=== PATIENT | male | born 1945 | race Caucasian/White ===

== ENCOUNTER → 2018-08-14 12:29 | Outpatient (CLI) | payer MEDICARE ==
[2010-06-15 03:17] VITALS: BMI 46.8
== END | disposition home or self-care (01) ==
LOC: D.CT 12:29
PROVIDERS: ATTEND Family Medicine
DX: I73.9 Peripheral vascular disease, unspecified (principal)

== ENCOUNTER → 2018-09-06 08:31 | Outpatient (CLI) | payer MEDICARE ==
[2010-06-15 03:17] VITALS: BMI 46.8
[2018-09-06 10:12] LABS: CREATININE - SERUM 1.4 mg/dL (0.6-1.3)
== END | disposition home or self-care (01) ==
LOC: D.CT 08:30
PROVIDERS: ATTEND Family Medicine
DX: D41.01 Neoplasm of uncertain behavior of right kidney (principal)

== ENCOUNTER 2018-09-27 08:00 | Outpatient (CLI) | payer MEDICARE ==
[2018-09-27] MEDS ORDERED: GLIMEPIRIDE2 MG (15:11)
[2018-09-27] MEDS ORDERED: EFFEXOR75 MG (15:11)
[2018-09-27] MEDS ORDERED: PRAVACHOL20 MG PO (15:12)
[2018-09-27] MEDS ORDERED: LISINOPRIL5 MG PO (15:12)
[2018-09-27] MEDS ORDERED: ASPIRIN300 MG (15:13)
[2018-09-27] MEDS ORDERED: MUCINEX600 MG (15:14)
[2018-09-27 16:06] LABS: BASOPHILS 0.9 % (0-2); EOSINOPHILS 1.6 % (0-7); HEMATOCRIT 55.7 % (42.0-54.0); HEMOGLOBIN 19.3 g/dL (13.5-17.5); IMMATURE GRANULOCYTES 0.1 % (0-5); LYMPHOCYTES 26.8 % (15-50); MCH 31.1 pg (26.0-34.0); MCHC 34.6 g/dL (31.0-37.0); MCV 89.8 fL (80.0-100.0); MEAN PLATELET VOLUME 9.9 fL (7.4-10.4); MONOCYTES 8.2 % (2-11); NEUTROPHILS 62.4 % (40-80); RDW 14.2 % (11.5-14.5); WBC 8.1 10x3/uL (4.8-10.8)
[2018-09-27 16:17] LABS: APTT 28.5 SECONDS (22.8-39.4); INR 1.1 (0.85-1.17); PROTIME 13.7 SECONDS (11.6-15.0)
[2018-09-27 16:19] LABS: PLATELET COUNT 165 10x3/uL (130-400)
[2018-09-27 16:21] LABS: ALBUMIN 3.7 g/dL (3.4-5.0); BILIRUBIN - TOTAL 0.52 mg/dL (0.2-1.3); CALCIUM 8.9 mg/dL (8.5-10.1); CARBON DIOXIDE 22.5 mmol/L (21.0-32.0); CREATININE - SERUM 1.3 mg/dL (0.6-1.3); POTASSIUM - SERUM 4.5 mmol/L (3.5-5.1); PROTEIN - SERUM 7.7 g/dL (6.4-8.2)
[2018-09-27 16:31] LABS: APPEARANCE HAZY (CLEAR); BILIRUBIN NEGATIVE (NEGATIVE); COLOR YELLOW (YELLOW); GLUCOSE NEGATIVE (NEGATIVE); KETONE NEGATIVE (NEGATIVE); NITRITE NEGATIVE (NEGATIVE); PROTEIN TRACE mg/dL (NEGATIVE); SPECIFIC GRAVITY 1.015 (1.005-1.020); UROBILINOGEN NORMAL (NORMAL)
[2018-09-27 16:33] LABS: BACTERIA MANY /hpf (NONE SEEN); RED CELLS - URINE 0-5 /hpf (0-5); WHITE CELLS - URINE 25-50 /hpf (0-5)
[2018-09-28 09:21] VITALS: BMI 39.1
[2018-10-30] MEDS ORDERED: AMOXICILLIN500 M1 PO (13:59)
== END 2018-09-27 08:01 | disposition home or self-care (01) ==
LOC: D.OPS 08:00 → EDSTATUS 09-29 07:30 → D.SDCHOLD 09-29 07:30
PROVIDERS: Internal Medicine Cardiovascular Disease; ATTEND Thoracic Surgery (Cardiothoracic Vascular Surgery)
DX: I71.4 Abdominal aortic aneurysm, without rupture (principal)

== ENCOUNTER 2018-09-28 08:52 | Outpatient (CLI) | payer MEDICARE ==
[~2018-09-28] VITALS: Ht 180.3 cm; Wt 127.3 kg
[~2018-09-28 08:52] MED LIST: ASPIRIN300 MG; EFFEXOR75 MG; GLIMEPIRIDE2 MG; LISINOPRIL5 MG PO; MUCINEX600 MG; PRAVACHOL20 MG PO
[2018-09-28 09:21] VITALS: Ht 180.3 cm; Wt 127.3 kg
--- NOTE | 2018-09-28 09:48 | NUR ---
0930 STRAIGHT CATH COMPLETE PER POLICY. TOLERATED WELL. 500 ML CLEAR YELLOW UNINE. SPECIMEN SENT TO LAB.
[2018-09-28 10:24] LABS: APPEARANCE SL CLDY (CLEAR); BACTERIA MANY /hpf (NONE SEEN); BILIRUBIN NEGATIVE (NEGATIVE); COLOR YELLOW (YELLOW); EPITHELIAL CELLS 0-5 /hpf (0-5); GLUCOSE NEGATIVE (NEGATIVE); KETONE SMALL mg/dL (NEGATIVE); MUCUS <1+ /lpf (NONE SEEN); NITRITE NEGATIVE (NEGATIVE); PROTEIN TRACE mg/dL (NEGATIVE); RED CELLS - URINE 0-5 /hpf (0-5); SPECIFIC GRAVITY 1.015 (1.005-1.020); UROBILINOGEN NORMAL (NORMAL)
== END 2018-09-28 09:45 | disposition home or self-care (01) ==
LOC: D.OPS 08:52
PROVIDERS: ATTEND Thoracic Surgery (Cardiothoracic Vascular Surgery)
DX: N39.0 Urinary tract infection, site not specified (principal)

== ENCOUNTER → 2018-10-06 17:19 | Outpatient (CLI) | payer MEDICARE ==
[2018-09-28 09:21] VITALS: BMI 39.1
== END | disposition home or self-care (01) ==
LOC: D.LABREF 17:19
PROVIDERS: ATTEND Urology
DX: D72.829 Elevated white blood cell count, unspecified (principal)

== ENCOUNTER 2018-10-31 08:25 | Day surgery (SDC) | payer MEDICARE ==
[2018-10-30 15:08] LABS: CALCIUM 8.7 mg/dL (8.5-10.1); CARBON DIOXIDE 27.1 mmol/L (21.0-32.0); CREATININE - SERUM 1.3 mg/dL (0.6-1.3); POTASSIUM - SERUM 4.1 mmol/L (3.5-5.1)
[2018-10-30 15:14] LABS: HEMATOCRIT 53.9 % (42.0-54.0); HEMOGLOBIN 18.9 g/dL (13.5-17.5); MCH 31.3 pg (26.0-34.0); MCHC 35.1 g/dL (31.0-37.0); MCV 89.4 fL (80.0-100.0); MEAN PLATELET VOLUME 9.5 fL (7.4-10.4); RBC 6.03 10x6/uL (4.20-6.10); RDW 14.2 % (11.5-14.5); WBC 7.3 10x3/uL (4.8-10.8)
[~2018-10-31 08:25] MED LIST changes: +AMOXICILLIN500 M1 PO
[2018-10-31 13:21] VITALS: BP 125/73; BMI 38.0
--- NOTE | 2018-10-31 14:45 | NUR ---
1425 NO ANCEF 2 GRAM IN PYXIS FOR PT OR UNDERPATIENT SPECIFIC DOSE. PHARMACY CALLED & INFORMED DOSE NEEDS TO BE TAKEN TO OR HOLDING. CHART FLAGGED. CHART WITH 10/31/18 EKG & 10/[address] MORTENSEN FOR REVIEW. STATES OKAY FOR SURGERY TODAY. NO BIG CHANGES BETWEEN THEM. EKG SIGNED OFF BY DR. MORTENSEN. Ynes MOROCHO R.N.
--- NOTE | 2018-10-31 14:50 | NUR ---
1300 (LATE ENTRY)TO ROOM 2511 FOR OPS AFTER WAITING IN WAITING ROOM SINCE 824. Ynes MOROCHO R.N.
--- NOTE | 2018-10-31 18:12 | NUR ---
ZAMARRIPA BAG CHANGED TO LEG BAG, PATIENT'S CAREGIVER STATES THAT SHE AND PATIENT HAVE BEEN CARING FOR ZAMARRIPA AND LEG BAG FOR PAST MONTH AND ARE FAMILIAR WITH THIS PROCESS. PIV DC'D WITH TIP INTACT. DISCHARGE INSTRUCTIONS REVIEWED WITH PATIENT AND CAREGIVER. DISCHARGED HOME VIA WHEELCHAIR TO PRIVATE VEHICLE WITH CAREGIVER
--- NOTE | 2018-10-31 19:37 | OP ---
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 PROCEDURES: UroLift times 5 units deployed, [address] FINDINGS: Obstructive bilateral lateral lobes of the prostate. No median lobe. Heavily trabeculated bladder with cellules and diverticula. Inflammatory polyps from an indwelling Tadeo catheter. No bladder tumors seen. BLOOD LOSS: Minimal. CLINICAL HISTORY: This is a 73-year-old male who was seen by Dr. Smith for bilateral iliac artery aneurysms as well as an aortic aneurysm. He was scheduled to have surgery to repair the iliac aneurysms. However, the surgery was canceled when he was found to be in urinary retention and furthermore he had a urinary tract infection with Aerococcus urinae, which was sensitive to amoxicillin. He has an indwelling Tadeo catheter now. I have kept him on amoxicillin to keep the infection suppressed. He comes today to have the UroLift procedure done to relieve his prostatic obstruction. He has no medication allergies and he was given Ancef on-call to the OR. Once the patient is voiding spontaneously on his own, then Dr. Smith will proceed to repair the iliac aneurysms. DESCRIPTION OF PROCEDURE: The patient was given induction of general anesthesia. He could not maintain saturation for TIVA. Once he was given induction of general anesthesia, he was placed in lithotomy position and prepped and draped. The UroLift scope was introduced. No penile or urethral strictures were seen. The prostatic urethra was obstructive in the lateral lobes. Going into the bladder, there was significant trabeculation of the bladder with cellules and diverticula. There was some inflammation where the indwelling Tadeo catheter had irritated the mucosa. No tumors were seen in the bladder. We put the first units near the bladder neck. They were placed 1.5 cm distal to the bladder neck at the anterolateral sulcus of the lateral lobe. One unit was applied on each side. Then, we placed 2 more units in the level of the verumontanum at the anterolateral sulcus of the lateral lobe. On the right side, the unit was implanted without any issues. On the left side, one unit pulled through the capsular tab. This had to be discarded. Another unit was fired in this area and it held fast. The patient has a nice open urethral channel now anteriorly. I attempted to place a 16-Mohawk Tadeo catheter in for drainage, but this met with some resistance from the remaining prostatic BPH inferior to our anterior channel. I went back with the cystoscope 21-Mohawk, and with the scope in the bladder, a Sensor wire was placed in the bladder. The scope was then removed, leaving the wire in place. Over the wire, a 20-Mohawk Buchanan tip Tadeo catheter was placed into the bladder. Once the Tadeo catheter was fully in the bladder, the balloon was inflated with 10 cc of sterile water. The Sensor wire was then removed entirely. The catheter was put to bag OPERATIVE REPORT [id number] NIYA LANDON drainage. I will see the patient in followup in one week's time to have a voiding trial. TRANSINT:[id number] Voice Confirmation ID: [id number] DOCUMENT ID: [id number] LUCA VILLANUEVA MD at 1937 CC: [id number] DICTATION DATE: 10/31/18 1638 RIVET MACHINE OPERATOR: 10/31/18 1850 [facility] [address] [id number]
== END 2018-10-31 18:12 | disposition home or self-care (01) ==
LOC: D.OPS 08:25 → D.PAN 13:30 → D.OPS 14:30 → D.PAN 14:30 → D.OPS 18:12
PROVIDERS: Anesthesiology; ATTEND Urology
DX: N40.1 Benign prostatic hyperplasia with lower urinary tract symptoms (principal); N13.8 Other obstructive and reflux uropathy; R33.8 Other retention of urine; N32.89 Other specified disorders of bladder; N32.3 Diverticulum of bladder; D41.4 Neoplasm of uncertain behavior of bladder; Z87.440 Personal history of urinary (tract) infections; Z01.812 Encounter for preprocedural laboratory examination

== ENCOUNTER → 2018-11-08 19:16 | Outpatient (CLI) | payer MEDICARE ==
[2018-10-31 13:21] VITALS: BMI 38.0
== END | disposition home or self-care (01) ==
LOC: D.LABREF 19:16
PROVIDERS: ATTEND Urology
DX: R31.9 Hematuria, unspecified (principal)

== ENCOUNTER 2018-12-07 05:50 | Inpatient (IN) | payer MEDICARE ==
--- NOTE | 2018-12-06 11:58 | NUR ---
CALLED PT DAUGHTER SHE STATES,"HES BEEN OFF ASA SINCE TUESDAY OF LAST WEEK November."
[2018-12-06 14:15] LABS: HEMATOCRIT 55.5 % (42.0-54.0); LYMPHOCYTES 23.7 % (15-50); MCH 30.7 pg (26.0-34.0); MCHC 34.2 g/dL (31.0-37.0); MCV 89.7 fL (80.0-100.0); MEAN PLATELET VOLUME 9.5 fL (7.4-10.4); NEUTROPHILS 66.2 % (40-80); PLATELET COUNT 167 10x3/uL (130-400); RBC 6.19 10x6/uL (4.20-6.10); RDW 14.5 % (11.5-14.5); WBC 7.7 10x3/uL (4.8-10.8)
[2018-12-06 14:18] LABS: APTT 29.6 SECONDS (22.8-39.4); INR 1.04 (0.85-1.17); PROTIME 13.1 SECONDS (11.6-15.0)
[2018-12-06 14:27] LABS: ANION GAP 14.3 mmol/L (8-16); CALCIUM 8.4 mg/dL (8.5-10.1); CARBON DIOXIDE 22.1 mmol/L (21.0-32.0); CREATININE - SERUM 1.3 mg/dL (0.6-1.3); POTASSIUM - SERUM 4.4 mmol/L (3.5-5.1)
[2018-12-07] VITALS (11 sets, daily range): BP systolic 90–141; BP diastolic 64–79; BMI 39.1
[~2018-12-07] VITALS: Ht 180.3 cm; Wt 127.7 kg
--- NOTE | ~2018-12-07 | HEMODYNAMI ---
PATIENT:NIYA LANDON MEDICAL RECORD: [id number] : 49 LOCATION:[facility] ADMISSION DATE: 12/07/18 Generatedon:12/07/20189:24 Patient name: NIYA LANDON Patient #: [id number] SSN: : 1945 Date of study: 12/07/2018 Page: Of Hemodynamic Procedure Report Patient Data Patient Demographics Procedure consent was obtained First Name: NIYA Gender: Male Last Name: DIPESH : 1945 [facility] Initial: R Age: 73 year(s) Patient #: [id number] Race: Unknown Additional ID: [id number] Contact details Address: [address] [place] [address] State: [place] City: [place] Zip code: [address] Past Medical History Allergies: No known allergies Admission Admission Data Admission Date: 12/07/2018 Admission Time: 5:50 Procedure Procedure Types Cath Procedure Peripheral Cath Diagnostic Procedure Nephro Perc Neph Uret Cath Procedure Description Procedure Date Procedure Date: 12/07/2018 Procedure Start Time: 8:40 Procedure Staff Name Function Jose Alberto Dozier MD Performing Physician Devante Hollis RT Monitor ILAN DRAKE RT Scrub Yanelis Bowles RN Nurse Cindi Hutchison RN Nurse Kristian Diggs MD Additional personnel Procedure Data Cath Procedure Fluoroscopy Diagnostic fluoroscopy Total fluoroscopy Time: 6 time: 6 min min Diagnostic fluoroscopy Total fluoroscopy dose: 343 dose: 343 mGy mGy Contrast Material Contrast Material Type Amount (ml) Isovue 300 20 Diagnostic catheters Device Type Used For End Catheter Placement Merit Impress KA 2 5Fr Pressure 40CM catheter ([id number]) Measurement Procedure Medications Medication Administration Route Dosage unlisted medication 1 Heparin Flush Bag added to field 1 bags (1000units/500ml NS) Lidocaine 1% added to field 20 Versed I.V. 1 mg Fentanyl I.V. 50 mcg Versed I.V. 1 mg Fentanyl I.V. 50 mcg Benadryl I.V. 25 mg Hemodynamics Rest Heart Rate: 72 (bpm) Snapshots Pre Cath Intra NCS Post Cath Vital Signs Time Heart Resp SPO2 etCO2 NIBP (mmHg) Rhythm Pain Sedation Rate (ipm) (%) (mmHg) Status Level (bpm) 8:19:18 93 17 93 8.3 145/78(123) NSR 0 (11) 10(A) , No pain 8:23:37 71 14 95 24.2 138/75(103) NSR 0 (11) 10(A) , No pain 8:27:58 69 15 95 16.6 134/75(118) NSR 0 (11) 10(A) , No pain 8:32:16 68 15 95 0 148/79(111) NSR 0 (11) 10(A) , No pain 8:36:40 73 16 96 6 133/85(105) NSR 0 (11) 10(A) , No pain 8:40:58 74 15 94 34.7 124/77(105) NSR 0 (11) 10(A) , No pain 8:45:14 71 13 94 34.7 130/71(98) NSR 0 (11) 10(A) , No pain 8:49:30 69 14 95 37.7 124/70(94) NSR 0 (11) 10(A) , No pain 8:54:29 70 13 96 40 Measuring NSR 0 (11) 10(A) , No pain 8:54:44 71 12 96 40.8 117/68(93) NSR 0 (11) 10(A) , No pain 8:58:55 72 14 91 34 88/45(68) NSR 0 (11) 10(A) , No pain 9:02:10 71 11 90 21.1 87/42(66) NSR 0 (11) 10(A) , No pain 9:06:22 73 10 91 12.1 90/43(64) NSR 0 (11) 10(A) , No pain 9:10:34 68 10 92 8.3 84/45(64) NSR 0 (11) 10(A) , No pain 9:14:42 68 9 92 0 83/48(64) NSR 0 (11) 10(A) , No pain 9:19:41 70 21 95 32.5 Measuring NSR 0 (11) 10(A) , No pain 9:19:53 68 16 95 34 100/54(86) NSR 0 (11) 10(A) , No pain Medications Time Medication Route Dose Verified Delivered Reason Notes Effec tiveness by by 8:16:54 cefepime ivpb 1gm Jose Alberto Hilario Per Jacoby Bowles RN physician 8:17:09 Heparin Flush added 1 Jose Alberto Abrams used for Bag to bags Jacoby Dozier procedure (1000units/500ml field MD YO NS) 8:17:20 Lidocaine 1% added 20ml Jose Alberto Abrams for local to vial Jacoby Dozier anesthetic field MD YO 8:37:44 Versed I.V. 1 mg Jose Alberto Hilario for Jacoby Bowles RN sedation 8:37:57 Fentanyl I.V. 50 Jose Alberto Hilario for mcg Jacoby Bowles RN sedation 8:40:06 Versed I.V. 1 mg Jose Alberto Hilario for Jacoby Bowles RN sedation 8:40:35 Fentanyl I.V. 50 Jose Alberto Hilario for mcg Jacoby Bowles RN sedation 8:54:55 Benadryl I.V. 25 mg Jose Alberto Hilario for Jacoby Bowles RN sedation Procedure Log Time Note 7:57:29 Devante Hollis RT (R) (CV) sent for patient. Start room use. 7:57:39 Time tracking: Regular hours (M-F 7:00 - 5:00) 7:57:50 Plan of Care:Hemodynamics will remain stable., Cardiac rhythm will remain stable., Comfort level will be maintained., Respiratory function will remain adequate., Patient/ family verbilizes understanding of procedure., Procedure tolerated without complication., Recovers from procedure without complications.. 7:58:00 Patient received from Outpatients to IR Alert and oriented. Tansferred to table in Supine position. 7:58:09 Signed procedure consent form obtained from patient. 7:58:10 Correct patient and procedure confirmed by team. 7:58:11 ECG and BP/O2 sat monitors applied to patient. 7:58:14 Full Disclosure recording started 7:58:15 7:58:18 H&P Date Dictated: 12/07/2018 H&P Addendum completed by physician on day of procedure. (MUST COMPLETE FOR ALL OUTPATIENTS). 7:58:19 Pre-procedure instructions explained to patient. 7:58:19 Pre-op teaching completed and patient verbalized understanding. 7:58:27 Use device set IR Diagnostic 7:58:30 Bag Decanter (2002S) opened to sterile field. 7:58:31 Sterile Angiographic Pack opened to sterile field. 7:58:31 Tegaderm 4 x 4 (1626W) opened to sterile field. 7:58:40 Family in waiting room. 7:58:42 Patient NPO since Midnight. 7:58:46 Is the patient allergic to Iodine/contrast media? No. 7:59:11 Patient allergic to No known allergies 7:59:16 Is patient on blood thinner?No 7:59:25 Patient diabetic? Yes. 7:59:27 If diabetic: On Metformin? No 7:59:28 7:59:28 ----Pre-sedation anethsthesia assessment.---- 7:59:31 Previous problem with sedation/anesthesia? No ? 7:59:33 Snore? Yes 7:59:35 Sleep apnea? Yes 7:59:37 Deviated septum? No 7:59:38 Opens mouth fully? Yes 7:59:39 Sticks out tongue? Yes 7:59:47 Airway obstruction? Yes copd 7:59:51 Dentures? Yes in 7:59:59 Patient pain scale 0/10 no pain. 8:16:54 cefepime 1gm ivpb was administered by Yanelis Bowles RN; Per physician; 8:17:09 Heparin Flush Bag (1000units/500ml NS) 1 bags added to field was administered by Jose Alberto Dozier MD; used for procedure; 8:17:20 Lidocaine 1% 20ml vial added to field was administered by Jose Alberto Dozier MD; for local anesthetic; 8:18:08 Vital chart was started 8:18:09 Baseline sample Acquired. 8:31:42 Sharps counted by scrub and verified by R.N. 8:31:43 Alarms reviewed by R. N. 8:31:52 Left Renal was prepped with chlora-prep and draped in sterile fashion. 8:36:36 Physician arrived 8:36:37 --------ALL STOP TIME OUT------ 8:36:37 Final Timeout: patient, procedure, and site verified with staff and physician. All members of the team are in agreement. 8:36:44 Lumbar site verified by team. 8:36:51 Fire Safety Assessment: A--An alcohol-based skin anteseptic being used preoperatively., C--Open oxygen or nitrous oxide is being used. 8:36:56 Sedation plan: IV Moderate Sedation Medication:Versed, Fentanyl 8:37:44 Versed 1 mg I.V. was administered by Yanelis Bowles RN; for sedation; 8:37:57 Fentanyl 50 mcg I.V. was administered by Yanelis Bowles RN; for sedation; 8:37:57 GLIDE CATHETER 5FR ANGLED 65cm (CG507) opened to sterile field. 8:40:04 Procedure started. 8:40:06 Versed 1 mg I.V. was administered by Yanelis Bowles RN; for sedation; 8:40:09 Local anesthetic to Lumbar area with Lidocaine 1% by Jose Alberto Dozier MD.INITIAL ACCESS ONLY 8:40:23 KIT, INTRODUCER ACCUSTICK II W/C ([id number]) opened to sterile field. 8:40:34 IV Extension Set opened to sterile field. 8:40:35 Fentanyl 50 mcg I.V. was administered by Yanelis Bowles RN; for sedation; 8:49:51 Kristian Diggs MD present and monitoring patient for TIVA. 8:50:20 SEE ANESTHESIA NOTE FOR PROCEDURAL TIVA 8:54:55 Benadryl 25 mg I.V. was administered by Yanelis Bowles RN; for sedation; 9:08:12 TORQUE DEVICE PLASTIC .038 ( TD01) opened to sterile field. 9:08:21 GLIDE WIRE ANGLE 180cm (OH5214) opened to sterile field. 9:09:33 A Merit Impress KA 2 5Fr 40CM catheter ([id number]) was advanced over the wire and used for Pressure Measurement. 9:13:40 SUTURE ETHILON 2-0 BLK MONO FS opened to sterile field. 9:15:33 Procedure ended.(Physican Out) 9:17:00 Fluoroscopy time 06.00 minutes. 9:17:05 Fluoroscopy dose: 343 mGy 9:17:05 Flurop Dose total: 343 9:17:30 SEE ANESTHESIA NOTE FOR POST PROCEDURE TIVA 9:17:34 Contrast amount:Isovue 300 20ml. 9:17:45 Post-op/insertion site Left Lumbar area dressed using a 4 x 4 and Tegaderm. 9:17:53 Post Left Renal area:stable 9:19:58 Post procedure instruction explained to patient.Patient verbalizes understanding. 9:19:59 Procedure and supply charges have been captured, reviewed, submitted and are correct. 9:24:06 Report given to Outpatients. 9:24:09 Patient transfered to Outpatients with Stretcher. 9:24:35 Vital chart was stopped Device Usage Item Name Manufacture Quantity Catalog Hospital Part Current Minimal Lot# / Number Charge Number Stock Stock Serial# Code Bag Decanter Microtek 1 2001S [id number] 41273 [id number] 5 () Medical Inc. Sterile Cardinal 1 [id number] 403882 773984 5 Angiographic Health Pack Tegaderm 4 x 3M 1 1626W 294011 987822 454370 5 4 (1626W) GLIDE Terumo 1 CG507 597121 531485 5 CATHETER 5FR ANGLED 65cm (CG507) KIT, [place] 1 [id number] 714313 050794 646939 5 INTRODUCER Scientific ACCUSTICK II W/C ([id number]) IV Extension Hospira 1 00815-32 723253 14850 560633 5 Set TORQUE [place] 1 TD01 734087 607192 392573 5 DEVICE Scientific PLASTIC .038 ( TD01) GLIDE WIRE Terumo 1 AW1203 019162 509255 314865 5 ANGLE 180cm (DF5386) Merit Merit 1 [id number] 283922 574686 5 Impress KA 2 Medical 5Fr 40CM catheter (32240KO5) SUTURE Ethicon 1 664H 502240 199087 5 ETHILON 2-0 BLK MONO FS Signature Audit Nelson Stage Time Signature Unsigned Intra-Procedure 12/07/2018 Devante 9:24:30 AM Telma RT (R) (CV) Signatures Monitor : Devante Signature : Telma RT Date : Time : [id number] [place] [address]
--- NOTE | 2018-12-07 09:47 | NUR ---
0935 PT SLEEPY FROM TIVA. AROUSES EASILY. TURNED ON RIGHT SIDE. DRESSING AND TUBE DRY AND INTACT.
--- NOTE | 2018-12-07 10:57 | NUR ---
0950 VITAL SIGNS ARE BEING DOCUMENTED ON POST PROCEDURE FORM AND IS A PART OF THE PAPER CHART.
--- NOTE | 2018-12-07 16:03 | NUR ---
1535 BS DOWN TO 75. DR. STVEENS NOTIFIED AND ORDERS RECEIVED TO GIVE D50W 1/2 AMP IV.
--- NOTE | 2018-12-07 16:04 | NUR ---
1555 PHARMACY DELIVERED D50W SYRINGE TO OPS. PT TOLERATING BS OF 75
--- NOTE | 2018-12-07 19:45 | NUR ---
RECIEVED TO ROOM FROM RECOVERY, ALERT AND ORIENTIATED, VVS, ZAMARRIPA CATH DRAINING DARK CRANBERRY COLORED URINE, LEFT NEPHROSTOMYTUBE WITH BLOODY DRAINAGE NOTED, ORIENTIATED TO ROOM, CALL LIGHT IN REACH, DENIES PAIN AT THIS TIME
[2018-12-08 01:27] VITALS: BP 94/61
--- NOTE | 2018-12-08 03:36 | OP ---
PATIENT NAME: NIYA LANDON MEDICAL RECORD: [id number] :49 LOCATION:[id number] ADMISSION DATE:12/07/18 SURGEON: IRENA VILLANUEVA MD DATE OF OPERATION: 12/07/2018 SURGEON: Irena Villanueva MD ANESTHESIA: General anesthesia by Esteban Damico CRNA DIAGNOSES: 1. Left lower pole renal stone, 16 mm 2. Infected kidney stone with E. coli, ESBL positive. PROCEDURE: Left percutaneous nephrolithotomy. FINDINGS: Radiodense 16-mm left lower pole renal stone. BLOOD LOSS: Minimal. CLINICAL HISTORY: This is a 73-year-old male who was initially seen by Dr. Smith for bilateral iliac artery aneurysms as well as an aortic aneurysm. He was scheduled to have a surgical repair of the aneurysms, but the surgery was canceled and he was found to be in urinary retention and he had a urinary tract infection. Eventually, I performed the UroLift times 4 units on 10/31/2018. He continues to have infection in the urine. He has an atrophic right kidney and the left kidney shows a 16-mm lower pole renal stone. The latest urine is growing E. coli, ESBL positive, resistant to all antibiotics except tetracycline, imipenem, and ertapenem. He is not allergic to any medications. Earlier today, he underwent insertion of a left nephroureteral access. The aim is to get rid of the infected stone by a percutaneous nephrolithotomy. He had been given antibiotics earlier today at interventional radiology and we did not give any further antibiotics. DESCRIPTION OF PROCEDURE: The patient was given induction of general anesthesia in supine position. I performed cystoscopy in order to try to pull down the distal end of the nephroureteral stent, but I was unable to find the distal end of the nephroureteral stent. It may not extend all the way down the ureter. At this point, the cystoscope was removed and a 16-Thai Tadeo catheter was inserted. The patient was then turned onto the prone position on the Eros frame. He was then prepped and draped. The nephroureteral catheter was accessed using an Amplatz Super Stiff wire. Once the wire was down in the bladder, the nephroureteral catheter was removed. We used a #10 blade and made an incision on either side of the wire. A dual lumen catheter was then used over the Super Stiff wire to enter the proximal ureter. Through the second lumen of the dual lumen catheter, we inserted a Sensor wire down to the bladder. The dual lumen catheter was then removed, leaving the [address] Over the Super Stiff, a NephroMax 30-Thai balloon dilator was placed. The tract was dilated to 18 atmospheres of pressure and the working sheath was placed down so that it was touching the stone. The Sensor wire was clamped to the drapes as a safety wire. We then removed the balloon dilator. The nephroscope was then introduced. The stone was immediately seen. The Sokolin LithoClast ultrasound modality was used to break up the stone. It also removed a lot of the stone fragments. The stone broke up fairly easily. The larger stone fragments were removed using the CrossCore Perc NCircle basket. The much smaller fragments were just removed using the ultrasound modality, which suctioned out stone particles. OPERATIVE REPORT [id number] NIYA LANDON At the end of the procedure, no further stone fragments could be seen on fluoroscopy. I examined the renal calices and some of the larger stone fragments that I could see remaining were removed using the Perc NCircle basket. Finally, I could find no other fragments remaining in the kidney. At this point, the scope was removed. Over the Super Stiff wire, we inserted the nephrostomy tube. Once the nephrostomy tube was fully in the renal pelvis, the Malecot wings were allowed to expand. The Super Stiff wire was removed. The working sheath was removed and then the safety wire was removed. The nephrostomy tube was sutured to the skin using 2-0 silk. It was put to bag drainage. Dressings were applied over the nephrostomy tube. The patient was then awakened and brought to the recovery room. I will admit the patient to the hospital for his postoperative care. TRANSINT:[id number] Voice Confirmation ID: [id number] DOCUMENT ID: [id number] IRENA VILLANUEVA MD at 0336 CC: [id number] DICTATION DATE: 12/07/181843 CATALYST SUPERVISOR: 12/07/182125 ADM [address] [place] [address]
[2018-12-08 06:07] VITALS: BP 103/70
--- NOTE | 2018-12-08 08:10 | NUR ---
ASSESSMENT PER FLOW SHEET. PT IS WITHOUT DISTRESS.DENIES NEEDS.CALL LIGHT IN REACH.MONITOR
[2018-12-08 09:24] VITALS: BP 101/54
[2018-12-08 12:07] VITALS: BMI 39.0
[2018-12-08 12:58] VITALS: BP 97/60
--- NOTE | 2018-12-08 13:08 | NUR ---
PT IS UP AT BEDSIDE AND IS WITHOUT DISTRESS.CALL LIGHT IN REACH
--- NOTE | 2018-12-08 14:30 | NUR ---
STILL WAITING ON AMOXIL FROM PHARMACY,SPOKE WITH EUGENIO.
--- NOTE | 2018-12-08 14:36 | NUR ---
LEFT NEPRHOSTOMY TUBE DRESSING HAS SOME BLOODY DRAINAGE SEEPING THROUGH AFTER BEING REINFORCED EARLIER.PAGE TO DR VILLANUEVA FOR DRESSING CHANGES.
--- NOTE | 2018-12-08 15:05 | NUR ---
NEPHROMY TUBE DRESSING CHANGE AND BAG REPLACED WITH ZAMARRIPA DRAINAGE BAG. ZAMARRIPA DCD ORDERED WITH 800CC OF BLOODY URINE IN BAG. URINAL PROVIDED.MONITOR FOR NEEDS.
[2018-12-08 16:32] VITALS: BP 94/64
[2018-12-08 20:43] VITALS: BP 115/59
--- NOTE | 2018-12-09 00:30 | NUR ---
ASSESSED ZAMARRIPA OUT PUT, NO DRAINAGE SINCE SHIFT CHANGE. FLUSHED ZAMARRIPA WITH 20 ML OF NS. LIGHT PINK DRAINGE RETURN. WILL CONTINUE TO MONITOR.
--- NOTE | 2018-12-09 03:20 | NUR ---
NO OUTPUT FROM NEPHROSTOMY TUBE. UNDRESSED SITE WITH NO SWELLING OR DRAINAGE NOTED. NO KINKS NOTED IN TUBING. BLADDER SCANED SHOWED 99ML. WILL NOTIFY DR. VILLANUEVA.
--- NOTE | 2018-12-09 03:40 | NUR ---
TALKED TO DR. VILLANUEVA VIA PHONE. NOTIFIED THAT THERE ARE NO KINKS IN TUBING, NO SWELLING OR LEAKAGE AROUND SITE, AND THAT PT HAS DRANK 586 ML OF SPRITE. ORDERED ZAMARRIPA PLACEMENT. WILL CONTIUE WITH PLAN OF CARE.
--- NOTE | 2018-12-09 04:20 | NUR ---
16 MALTESE CATH PLACED. 100 ML OF DARK RED URINE NOTED IN BAG. WILL CONTINUE TO MONITOR.
[2018-12-09 04:48] VITALS: BP 104/63
[2018-12-09 08:58] VITALS: BP 132/75
--- NOTE | 2018-12-09 09:54 | NUR ---
PT ALERT X 4, SILETZ TRIBE. WHEEZES ON INSPIRATION AND EXPIRATION TO ALL GARCIA, 6L O2 PER HF NC. IV TO RIGHT FOREARM, PATENT, DRESSING CDI. ZAMARRIPA IN PLACE, URINE RED. NEPHROSTOMY TUBE TO LEFT FLANK TO GRAVITY DRAINAGE, MINIMAL OUTPUT, SLIGHT PINK TINGE. PT REPORTING PAIN OF 5/10, WILL MONITOR. FAMILY AT BEDSIDE. BED LOW, CALL LIGHT IN REACH. NO OTHER NEEDS AT THIS TIME.
--- NOTE | 2018-12-09 11:55 | NUR ---
PT REQUESTING FSBS CHECK, STATED IT WAS CHECKED PRIOR TO BREAKFAST AND IT WAS IN THE 80'S, PER PT FAMILY MEMBER. PT NOT TOLERATING FOOD AT THIS TIME, NAUSEA. MEDICATED PER ORDERS, WILL MONITOR. BS AT THIS TIME IS 72, INSTRUCTED PT TO EAT OR DRINK WHATEVER HE FEELS HE CAN TOLERATE TO AVOID OTHER INTERVENTIONS.
[2018-12-09 14:14] VITALS: BP 99/50
[2018-12-09 17:27] VITALS: BP 101/52
--- NOTE | 2018-12-09 18:29 | NUR ---
IV DC'D FROM RIGHT FOREARM, TIP INTACT. NEW IV STARTED TO LEFT HAND, 1 ATTEMPT.
--- NOTE | 2018-12-09 19:00 | NUR ---
REPORT RECEIVED AND CARE OF PT ASSUMED. PT LYING IN MID MAXWELL'S POSITION VISITING WITH SPOUSE. IV TO LEFT HAND PATENT WITH NS INFUSING AT 20 ML/HR. DRESSING ON LEFT BACK INTACT.
--- NOTE | 2018-12-09 20:07 | NUR ---
HS MEDICATIONS GIVEN. WILL CONTINUE TO MONITOR FOR NEEDS.
[2018-12-09 20:18] VITALS: BP 94/46
--- NOTE | 2018-12-09 21:30 | NUR ---
CHANGED DRESSING ON LEFT LOWER BACK. PLACED STACK OF 4X4'S AND COVERED WITH ABD PAD. OLD DRESSING SOAKED WITH BLOODY URINE.
--- NOTE | 2018-12-09 22:12 | NUR ---
GAVE NORCO PO PER REQUEST FOR PAIN, PER PRN ORDER. WILL CONTINUE TO MONITOR FOR NEEDS. SPOUSE IS AT BEDSIDE.
[2018-12-10] VITALS (16 sets, daily range): BP systolic 96–135; BP diastolic 42–63; Ht 180.3 cm; Wt 127.7 kg
--- NOTE | 2018-12-10 05:35 | NUR ---
FSBS 38 THIS CHECK. GAVE 1 AMP OF D-50 AND ORANGE JUICE. WILL RE-CHECK.
--- NOTE | 2018-12-10 06:00 | NUR ---
CHANGED DRESSING ON LEFT SIDE...SOAKED WITH URINE. BED PADS ALSO SOAKED WITH URINE...FROM OLD NEPHROSTOMY TUBE SITE.
--- NOTE | 2018-12-10 07:56 | NUR ---
REQUESTING RECHECK OF FSBS. TAKEN AND RESULTED AT 47. HYPOGLYCEMIC PROTOCOL FOLLOWED. WILL MONITOR.
--- NOTE | 2018-12-10 09:37 | NUR ---
PT ALERT X 4. COURSE WHEEZES TO ALL GARCIA ON INSPIRATION AND EXPIRATION, 6L O2 PER HF NC, PRODUCTIVE COUGH, WHITE SPUTUM. FSBS RECHECK 58, HYPOGLYCEMIC PROTOCOL FOLLOWED. IV TO LEFT HAND, PATENT, DRESSING CDI. ABDOMEN DISTENDED AND TENDER. DRESSING TO LEFT FLANK CHANGED. ZAMARRIPA IN PLACE, URINE RED. PT REPORTING NO PAIN AT THIS TIME. FAMILY AT BEDSIDE. BED LOW, CALL LIGHT IN REACH. NO OTHER NEEDS AT THIS TIME.
--- NOTE | 2018-12-10 10:58 | NUR ---
RECHECK FSBS, RESULT OF 35. GIVEN D50 ORDERED. GIVEN GRAPE JUICE, ORANGE JUICE, ICE CREAM AND PT STATED HE WOULD EAT HIS LUNCH TRAY. HE WOULD NOT ACCEPT MILK, SANDWICH, PEANUT BUTTER OR NESHA CRACKERS. FAMILY STATED THEY
--- NOTE | 2018-12-10 11:20 | NUR ---
NURSE CONCERNED ABOUT PT REGARDING HYPOGLYCEMIA RANGING 35-50 AFTER MULTIPLE D50S GIVEN (SEE EMAR). PT SITTING UP ON SIDE OF BED HAS EATEN ORANGE JUICE, PUDDING, ICE CREAM, APPLE JUICE, BLOOD GLUCOSE STILL 47. SPOKE WITH DR VILLANUEVA, ORDERED STAT CBC, CMP, 1 L D10 BOLUS, AND TO TRANSFER TO ICU FOR CLOSER OBSERVATION. WILL TRANSFER NOW PER ORDERS.
--- NOTE | 2018-12-10 11:30 | NUR ---
REC'D FROM FLOOR VIA BED D/T HYPOGLYCEMIA. AWAKE/ALERT- DYSPNIC UPON EXERTION. POSTERIOR LEFT FLANK DRSG SATURATED
--- NOTE | 2018-12-10 11:43 | NUR ---
D50 1 AMP FOR FSBS 37.
--- NOTE | 2018-12-10 11:50 | NUR ---
D10 STARTED.FAMILY IN AND UPDATED.
[2018-12-10 12:10] LABS: BASOPHILS 0.2 % (0-2); EOSINOPHILS 1.1 % (0-7); HEMOGLOBIN 15.2 g/dL (13.5-17.5); IMMATURE GRANULOCYTES 0.3 % (0-5); LYMPHOCYTES 7.6 % (15-50); MCH 30.1 pg (26.0-34.0); MCHC 33.8 g/dL (31.0-37.0); MCV 89.1 fL (80.0-100.0); MONOCYTES 5.6 % (2-11); NEUTROPHILS 85.2 % (40-80); PLATELET COUNT 109 10x3/uL (130-400); RBC 5.05 10x6/uL (4.20-6.10); RDW 14.5 % (11.5-14.5)
[2018-12-10 12:12] LABS: ALBUMIN 2.3 g/dL (3.4-5.0); ANION GAP 14.4 mmol/L (8-16); BILIRUBIN - TOTAL 0.68 mg/dL (0.2-1.3); CALCIUM 7.8 mg/dL (8.5-10.1); CARBON DIOXIDE 23.8 mmol/L (21.0-32.0); POTASSIUM - SERUM 4.2 mmol/L (3.5-5.1); PROTEIN - SERUM 5.7 g/dL (6.4-8.2)
--- NOTE | 2018-12-10 12:30 | NUR ---
LEFT FLANK DRSG CHANGED-PREVIOUS NEPHROSTOMY TUBE SITE W/ VISIBLE TRICKLE CLEAR PALE YELLOW DRNG.
--- NOTE | 2018-12-10 14:00 | NUR ---
FSBS- 72. 20G IV SITED ON 2ND ATTEMPT TO LEFT POST F/A.
--- NOTE | 2018-12-10 14:36 | NUR ---
SITS ON SIDE OF BED AND IN CHAIR BRIEFLY. LEFT FLANK DRSG CHANGED USING 2 BOXES 4XS, ABD PAD AND MEDIPORE TAPE.
--- NOTE | 2018-12-10 14:55 | NUR ---
REASSESSED. GIVEN D50 AND OJ FOR FSBS 50.
--- NOTE | 2018-12-10 15:45 | NUR ---
D10 @ 100MLS/HR STARTED AFTER DR VILLANUEVA NOTIFIED OF FSBS 58. GIVEN JUICE AND PB CRACKERS, D50 IVP.
--- NOTE | 2018-12-10 16:20 | NUR ---
UROSTOMY POUCH PLACED OVER DRAINING LEFT FLANK PRIOR NEPHROSTOMY SITE. IMMEDIATELY BEGINS TO FILL W/ PALE REAL URINE.
--- NOTE | 2018-12-10 18:30 | NUR ---
BS= 100. ASSISTED BACK TO BED. GETS UP TO BEDSIDE OFTEN W/STANDBY ASSIST.
[2018-12-11] VITALS (10 sets, daily range): BP systolic 87–120; BP diastolic 28–67
--- NOTE | 2018-12-11 00:38 | NUR ---
1900 PT AWAKE AND ALERT SITTING ON THE SIDE OF THE BED. RESP SHALLOW, AND EVEN NON LABORED. ASSESSMENT COMPLETED AT THIS TIME 2100 PT RESTING IN BED AT THIS TIME. RESP SHALLOW AND EVEN, PT DENIES COMPLAINTS THAT THIS TIME, WILL CONTINUE TO MONITOR. 2300 REASSESSMENT COMPLETED AT THIS TIME, PT RESTING IN BED WITH EYES CLOSED, RESP EVEN NON LABORED
--- NOTE | 2018-12-11 01:11 | NUR ---
PT REQUESTING TO SET UP ON THE SIDE OF THE BED. PT ASSISTED UP. NO COMPAINTS AT THIS TIME
--- NOTE | 2018-12-11 07:15 | NUR ---
REPORT RECEIVED. ASSESSMENT COMPLETE PER FLOW SHEET. VSS. PT UP OOB EATING BREAKFAST DENIES NEEDS WILL CONTINUE TO MONITOR
--- NOTE | 2018-12-11 09:25 | NUR ---
FAMILY AT BEDSIDE WILL CONTINUE TO MONITOR
--- NOTE | 2018-12-11 09:46 | NUR ---
Nutrition follow-up: Diet: Regular PO intake ~70% average of last 8 meals Labs reviewed; pt with hypoglycemia -> on regular diet, insulin held Wt: 275# Will continue to provide food choices and honor food preferences. RDN following.
--- NOTE | 2018-12-11 11:01 | NUR ---
RECIEVED PT FROM ICU. PT IS A/OX4, UP AD SOTO. REPORTS NO PAIN AT THIS TIME. PT CHANGED TO [facility] BLOOD SUGAR CHECKS WITH THE FSBS WITH THE APPROVAL OF DR. VILLANUEVA'S OFFICE NURSE. PT REQUESTS THAT HIS ZAMARRIPA BE REMOVED, INFORMED PT THAT HE WOULD HAVE TO WAIT UNTIL DR. VILLANUEVA SEE'S HIM. PT IS UNHAPPY BUT UNDERSTANDING. NO COMPLAINTS/CONCERNS/QUESTIONS NOTED AT THIS TIME. CL IN REACH, SRX2.
--- NOTE | 2018-12-11 15:24 | NUR ---
ERMOPVED ZAMARRIPA PER NURSING PROTOCOL. REMOVED BAG/ZAMARRIPA FROM BACK LEFT SIDE, REPLACED WITH CLEAN AND DRY DRESSING. PT HAS URINATED.
--- NOTE | 2018-12-11 18:53 | NUR ---
PT REFUSED I/V, STATING HE'LL GET ONE IF HE ENDS P GETTING AMEDICATION THAT REQUIRES IT. VERBALIZES UNDERSTANDING OF RISKS. CL IN REACH, SRX2.
--- NOTE | 2018-12-11 19:41 | NUR ---
ASSESSED PT RL BACK INCISION DRESSING. MINIMUM SATURATION ON DRESSING. REMOVED OLD DRESSING REMOVED. INCISION SITE APPEARS CLEAN, WITH NO BLOODY DRAINAGE. NEW 2X2 GAUZE APPLIED AND COVERED WITH MEPLEX. PT TOLERATE WELL. PT REFUSE INSERTION OF PIV. DENIES ANY FURTHER NEEDS AT THIS TIME. WILL CPOC.
--- NOTE | 2018-12-11 21:34 | NUR ---
PT HAS NO PIV ACCESS AND HE REFUSED ONE. WILL CTM. FAMILY @ BEDSIDE.
[2018-12-12] VITALS: BP 115/64
--- NOTE | 2018-12-12 03:44 | NUR ---
NOTICED A MODERATE AMOUNT OF DRAINAGE AROUND PT'S NEPHROSTOMY INCISION SITE. THE DRESSING SUPERSATURATED WITH FLUID. PT STATES HIS BED WAS WET, THAT IS HOW HE REALIZED HIS DRESSIN G WAS SATURATED. APPLIED ABD DRESSING, COVERED LARGE TEGADERM AND TAPED. CHANGED PT'S GOWN AND PROVIDED FRESH LINEN. PT VOICED THANKS. WILL CTM.
[2018-12-12 04:00] VITALS: BP 100/47
[2018-12-12 08:13] VITALS: BP 110/57
[2018-12-12 16:05] VITALS: BP 90/50
[2018-12-12 20:00] VITALS: BP 102/55
--- NOTE | 2018-12-12 22:45 | NUR ---
PT NOTIFIED ME HIS COLOSTOMY BAG IS LEAKING. PT'S DAUGHTER STATES PT FELL ASLEEP AND LAY ON IT. REMOVED OLD COLOSTYOMY BAG AND APPLIED A NEW ONE ON INCISION SITE. PT TOLERATE WELL. PT VOICED THANKS. WILL CTM.
--- NOTE | 2018-12-12 23:03 | NUR ---
PT C/O PAIN IN LOWER BACK 09/22. PRN NORCO 7.5/325MG GIVEN AT THIS TIME.
[2018-12-13 00:05] VITALS: BP 111/61
[2018-12-13 04:14] VITALS: BP 121/60
--- NOTE | 2018-12-13 05:01 | NUR ---
PT LAYING COMFORTABLE IN BED. FAMILY @ BEDSIDE. THE TOTAL AMOUNT OF FLUID DRAIN FROM PT'S NEPHROSTOMY INCISION SITE IS 1,615MLS. WILL PASS REPORT TO INCOMING NURSE TO NOTIFY PROVIDER. PT DENIES ANY FURTHER NEEDS AT THIS TIME. CL IN REACH.
--- NOTE | 2018-12-13 07:48 | NUR ---
INITIAL ROUNDING, WHITE BOARD UPDATED. PATIENT IS SITTING IN BEDSIDE CHAIR, EATING BREAKFAST, O2 VIA NC IN PLACE, DAUGHTER AT THE BEDSIDE. PATIENT DENIES PAIN, STATES, I AM READY TO GO HOME
[2018-12-13 08:31] VITALS: BP 100/55
--- NOTE | 2018-12-13 08:34 | NUR ---
PATIENT CALLED THIS NURSE TO THE ROOM REPORTS SEEING SHADOWS, BLOOD SUGAR CHECKED, RESULTED IN 140. VITAL SIGNS TAKEN BY RN, FOLLOWS 100/49 B/P, HR 85. HE COMPLAINS THAT THE PATIENT NEXT DOOR KEPT HIM UP ALL NIGHT SCREAMING OUT. HE IS WANTING TO GO HOME FROYLAN
[2018-12-13 11:34] VITALS: BP 121/57
--- NOTE | 2018-12-13 12:19 | MORECARE ---
CASE MANAGEMENT DISCHARGE SUMMARY PATIENT: NIYA LANDON UNIT: [id number] ADM DATE: 12/07/18 AGE: 73 : 47 SEX: M ROOM/BED: D.2102 AUTHOR: DHAVAL BENNETT PHYSICIAN: REFERRING PHYSICIAN: IRENA VILLANUEVA MD DATE OF SERVICE: 12/13/18 Discharge Plan Patient Name: NIYA LANDON Facility: [facility]:[place] : 1945 Planned Disposition: Anticipated Discharge Date: Discharge Date: Expected LOS: Initial Reviewer: [id number] Initial Review Date: 12/13/2018 Generated: 12/13/18 1:19 pm DCPIA - Discharge Planning Initial Assessment Updated by MARIO: Krupa Guevara on 12/13/18 12:16 pm * Is the patient Alert and Oriented? Yes * How many steps to enter\exit or inside your home? * PCP KARINA * Pharmacy [facility] * Preadmission Environment Home with Family * ADLs Independent * Equipment Nebulizer * List name and contact numbers for known caregivers / representatives who currently or will assist patient after discharge: CÉSAR GOODWIN - [phone] * Verbal permission to speak to the caregivers and representatives has been obtained from the patient. Yes * Community resources currently utilized None * Additional services required to return to the preadmission environment? No * Can the patient safely return to the preadmission environment? Yes * Has this patient been hospitalized within the prior 30 days at any hospital? No Coverage Notice Reviewer: [id number] - Krupa Guevara Notice Issued Date-Time: 12/13/2018 11:23 Notice Type: IM Discharge Notice Notice Delivered To: Patient Relationship to Patient: Self Streaming Media Specialist Name: Delivery Method: HAND - Hand Delivered Maria A Days: Prior Verbal Notification: Recipient Understood Notice: Yes Recipient Signature: Yes Med Rec Note Co-signed by Attending: Coverage Notice Comment: Patient Name: NIYA LANDON Page [phone] at 1219 All edits/amendments must be made on the electronic document DICTATION DATE: 12/13/18 1219 TIP INSERTER: CONTRERAS 12/13/18 1219 RPT#: [id number] [place] DATE: STATUS: ADM IN [facility] [address] [place] [address] END OF REPORT
--- NOTE | 2018-12-13 12:32 | MORECARE ---
CASE MANAGEMENT DISCHARGE SUMMARY PATIENT: NIYA LANDON UNIT: [id number] ADM DATE: 12/07/18 AGE: 73 : 47 SEX: M ROOM/BED: D.2100 AUTHOR: SABRINADOC PHYSICIAN: REFERRING PHYSICIAN: IRENA VILLANUEVA MD DATE OF SERVICE: 12/13/18 Discharge Plan Patient Name: NIYA LANDON Facility: [facility]:[place] : 1945 Planned Disposition: Anticipated Discharge Date: Discharge Date: Expected LOS: Initial Reviewer: [email or web address] Initial Review Date: 12/13/2018 Generated: 12/13/18 1:32 pm Comments DCP- Discharge Planning Updated by [email or web address]: Krupa Guevara on 12/13/18 11:[address] Patient Name: NIYA LANDON Admission Status: Elective Accout number: [id number] Admission Date: 12-07-2018 : 1945 Admission Diagnosis:CALCULUS OF KIDNEY Attending: FERNANDO VILLANUEVA Current LOS: 6 Anticipated DC Date: Planned Disposition: Primary Insurance: [employer] MEDICARE PPO or HMO Discharge Planning Comments: CM met with patient and daughter Diana at bedside after explaining CM role and obtaining verbal consent. Patient lives at home with his and plans to return there upon discharge. Patient feels this would be a safe discharge. CM discussed availability / needs of home health and medical equipment. Patient denies any discharge needs at this time. Patient refused home health services at this time for dressing changes. Patient states he will have his daughter drive him home upon discharge. D/C IMM signed 12/13/18 @ 1123 CM will continue to follow and assist as needed with discharge planning / needs. Executive Director Contract Shop: Krupa Guevara DCPIA - Discharge Planning Initial Assessment Updated by [email or web address]: Krupa Guevara on 12/13/18 12:16 pm * Is the patient Alert and Oriented? Yes * How many steps to enter\exit or inside your home? * PCP KARINA * Pharmacy [facility] * Preadmission Environment Home with Family * ADLs Independent * Equipment Nebulizer * List name and contact numbers for known caregivers / representatives who currently or will assist patient after discharge: DIANA ESTEBAN GOODWIN - [phone] * Verbal permission to speak to the caregivers and representatives has been obtained from the patient. Yes * Community resources currently utilized None * Additional services required to return to the preadmission environment? No * Can the patient safely return to the preadmission environment? Yes * Has this patient been hospitalized within the prior 30 days at any hospital? No Coverage Notice Reviewer: [email or web address] Riley Guevara Notice Issued Date-Time: 12/13/2018 11:23 Notice Type: IM Discharge Notice Notice Delivered To: Patient Relationship to Patient: Self Social Director Name: Delivery Method: HAND - Hand Delivered Maria A Days: Prior Verbal Notification: Recipient Understood Notice: Yes Recipient Signature: Yes Med Rec Note Co-signed by Attending: Coverage Notice Comment: Last DP export: 12/13/18 11:19 a Patient Name: NIYA LANDON Page [phone] at 1232 All edits/amendments must be made on the electronic document DICTATION DATE: 12/13/18 1232 SHRIMP PACKER: CONTRERAS 12/13/18 1232 RPT#: [id number] [place] DATE: STATUS: ADM IN [facility] [address] [place] [address] END OF REPORT
--- NOTE | 2018-12-14 07:25 | MORECARE ---
CASE MANAGEMENT DISCHARGE SUMMARY PATIENT: NIYA LANDON UNIT: [id number] ADM DATE: 12/07/18 AGE: 73 : 47 SEX: M ROOM/BED: D.2102 AUTHOR: SABRINA,DOC PHYSICIAN: REFERRING PHYSICIAN: IRENA VILLANUEVA MD DATE OF SERVICE: 12/14/18 Discharge Plan Patient Name: NIYA LANDON Facility: [facility]:[place] : 1945 Planned Disposition: Anticipated Discharge Date: Discharge Date: 12/13/2018 Expected LOS: Initial Reviewer: [email or web address] Initial Review Date: 12/13/2018 Generated: 12/14/18 8:25 am Comments DCP- Discharge Planning Updated by [id number]: Krupa Guevara on 12/13/18 11:[address] Patient Name: NIYA LANDON Admission Status: Elective Accout number: [id number] Admission Date: 12-07-2018 : 1945 Admission Diagnosis:CALCULUS OF KIDNEY Attending: FERNANDO VILLANUEVA Current LOS: 6 Anticipated DC Date: Planned Disposition: Primary Insurance: AET[employer] MEDICARE PPO or HMO Discharge Planning Comments: CM met with patient and daughter Diana at bedside after explaining CM role and obtaining verbal consent. Patient lives at home with his and plans to return there upon discharge. Patient feels this would be a safe discharge. CM discussed availability / needs of home health and medical equipment. Patient denies any discharge needs at this time. Patient refused home health services at this time for dressing changes. Patient states he will have his daughter drive him home upon discharge. D/C IMM signed 12/13/18 @ 1123 CM will continue to follow and assist as needed with discharge planning / needs. Dynamic Balancer Set Up Worker: Krupa Guevara DCPIA - Discharge Planning Initial Assessment Updated by [email or web address]: Krupa Guevara on 12/13/18 12:16 pm * Is the patient Alert and Oriented? Yes * How many steps to enter\exit or inside your home? * PCP KARINA * Pharmacy [facility] * Preadmission Environment Home with Family * ADLs Independent * Equipment Nebulizer * List name and contact numbers for known caregivers / representatives who currently or will assist patient after discharge: DIANA GOODWIN - [phone] * Verbal permission to speak to the caregivers and representatives has been obtained from the patient. Yes * Community resources currently utilized None * Additional services required to return to the preadmission environment? No * Can the patient safely return to the preadmission environment? Yes * Has this patient been hospitalized within the prior 30 days at any hospital? No Coverage Notice Reviewer: [email or web address] Riley Guevara Notice Issued Date-Time: 12/13/2018 11:23 Notice Type: IM Discharge Notice Notice Delivered To: Patient Relationship to Patient: Self Mechanical Adjuster Name: Delivery Method: HAND - Hand Delivered Maria A Days: Prior Verbal Notification: Recipient Understood Notice: Yes Recipient Signature: Yes Med Rec Note Co-signed by Attending: Coverage Notice Comment: Last DP export: 12/13/18 11:32 a Patient Name: NIYA LANDON Page [phone] at 0725 All edits/amendments must be made on the electronic document DICTATION DATE: 12/14/18724 ASSURANCE SENIOR MANAGER: CONTRERAS 12/14/18724 RPT#: [id number] DC DATE:12/13/18 STATUS: DIS IN [facility] [address] [place] [address] END OF REPORT
[2018-12-15 07:14] LABS: CALCULI - CA OXALATE MONOHYDR 55 % (()); CALCULI - CALCIUM PHOSPHATE 40 % (()); CALCULI - COLOR Brown (()); CALCULI - COMMENT Comment: (())
== END 2018-12-13 13:47 | disposition home or self-care (01) | DRG 659 ==
LOC: D.OPS 05:50 → D.MS 05:50 → D.PAN 08:00 → D.OPS 08:00 → D.PAN 08:55 → D.MS 19:44 → D.OPS 19:45 → D.MS 19:45 → D.ICU 12-10 11:25 → D.M2 12-11 10:52
PROVIDERS: Radiology Diagnostic Radiology; ADMIT Urology; ATTEND Urology
PROC: 0TC43ZZ Extirpation of Matter from Left Kidney Pelvis, Percutaneous Approach (ICD-10-PCS; principal; 2018-12-07 07:50)
DX: N20.0 Calculus of kidney (principal); A41.9 Sepsis, unspecified organism; E11.9 Type 2 diabetes mellitus without complications

== ENCOUNTER 2018-12-14 17:27 | Inpatient (IN) | payer MEDICARE ==
[~2018-12-14] VITALS: Ht 180.3 cm; Wt 127.3 kg
--- NOTE | 2018-12-14 18:18 | NUR ---
URINE TO LAB
[2018-12-14 18:26] LABS: APPEARANCE HAZY (CLEAR); BILIRUBIN NEGATIVE (NEGATIVE); COLOR RED (YELLOW); GLUCOSE NEGATIVE (NEGATIVE); KETONE NEGATIVE (NEGATIVE); NITRITE NEGATIVE (NEGATIVE); PROTEIN TRACE mg/dL (NEGATIVE); SPECIFIC GRAVITY 1.015 (1.005-1.020); UROBILINOGEN NORMAL (NORMAL)
[2018-12-14 18:28] VITALS: BP 122/72
[2018-12-14 18:28] LABS: BACTERIA FEW /hpf (NONE SEEN); RED CELLS - URINE >50 /hpf (0-5); WHITE CELLS - URINE 0-5 /hpf (0-5)
--- NOTE | 2018-12-14 18:34 | NUR ---
2+ PITTING EDEMA IN CARLOS FEET AND CARLOS HANDS
[2018-12-14 19:09] LABS: BASOPHILS 0.6 % (0-2); EOSINOPHILS 5.2 % (0-7); HEMATOCRIT 45.6 % (42.0-54.0); HEMOGLOBIN 15.4 g/dL (13.5-17.5); IMMATURE GRANULOCYTES 0.9 % (0-5); LYMPHOCYTES 18.1 % (15-50); MCH 30.2 pg (26.0-34.0); MCHC 33.8 g/dL (31.0-37.0); MCV 89.4 fL (80.0-100.0); MEAN PLATELET VOLUME 9.2 fL (7.4-10.4); MONOCYTES 7.4 % (2-11); NEUTROPHILS 67.8 % (40-80); RDW 14.4 % (11.5-14.5); WBC 9.3 10x3/uL (4.8-10.8)
[2018-12-14 19:11] LABS: PLATELET COUNT 177 10x3/uL (130-400)
[2018-12-14 19:24] LABS: ALBUMIN 2.8 g/dL (3.4-5.0); ANION GAP 13.9 mmol/L (8-16); BILIRUBIN - TOTAL 0.52 mg/dL (0.2-1.3); CALCIUM 8.2 mg/dL (8.5-10.1); CARBON DIOXIDE 23.1 mmol/L (21.0-32.0); CREATININE - SERUM 1.7 mg/dL (0.6-1.3); PROTEIN - SERUM 6.6 g/dL (6.4-8.2)
[2018-12-14 20:10] LABS: CKMB 4.6 U/L (0.0-3.6); CREATINE KINASE 159 UL (21-232); PRO BNP 395 pg/mL (0-125)
[2018-12-14 20:11] LABS: TROPONIN-I < 0.017 ng/mL (0.000-0.060)
--- NOTE | 2018-12-14 21:30 | NUR ---
2 RN'S ATTEMPTED IV ACCESS AT THIS TIME WITHOUT SUCCESS. EDP INFORMED. SCANNED CHANGED
--- NOTE | 2018-12-14 21:42 | NUR ---
PT TAKEN TO CT FLUIDS AND ANTIBIOTIC PAUSED.
--- NOTE | 2018-12-14 22:07 | NUR ---
PT TO CASSIUSCAN AT THIS TIME
--- NOTE | 2018-12-14 23:11 | NUR ---
RT AT BEDSIDE WITH BREATHING TX
[2018-12-14 23:12] VITALS: BP 150/60
[2018-12-14 23:45] VITALS: BP 145/94
--- NOTE | 2018-12-15 00:30 | NUR ---
LOVENOX NOT IN PYXIS. CONTACTED LALO CEDILLO, INFORMED SHE WOULD TAKE IT TO MED/SURG
[2018-12-15] MEDS ORDERED: HYDROCODONE-A1 UDTA2 PO (00:57)
[2018-12-15 00:59] VITALS: BP 143/75; Ht 180.3 cm; Wt 127.3 kg
[2018-12-15 05:37] LABS: BASOPHILS 0.6 % (0-2); EOSINOPHILS 4.6 % (0-7); HEMATOCRIT 42.6 % (42.0-54.0); HEMOGLOBIN 14.1 g/dL (13.5-17.5); MCH 30.1 pg (26.0-34.0); MCHC 33.1 g/dL (31.0-37.0); MONOCYTES 6.8 % (2-11); PLATELET COUNT 171 10x3/uL (130-400); RBC 4.68 10x6/uL (4.20-6.10); RDW 14.6 % (11.5-14.5)
[2018-12-15 05:48] LABS: ALBUMIN 2.4 g/dL (3.4-5.0); ANION GAP 14.6 mmol/L (8-16); BILIRUBIN - TOTAL 0.27 mg/dL (0.2-1.3); CALCIUM 7.9 mg/dL (8.5-10.1); CARBON DIOXIDE 24.4 mmol/L (21.0-32.0); CREATININE - SERUM 1.7 mg/dL (0.6-1.3); PROTEIN - SERUM 5.5 g/dL (6.4-8.2)
[2018-12-15 05:49] VITALS: BP 135/72
[2018-12-15 08:40] VITALS: BP 130/75
[2018-12-15 13:04] VITALS: BP 113/68
--- NOTE | 2018-12-15 15:40 | NUR ---
I have reviewed this patient and I concur with the Shift Assessment completed by the Licensed Practical Nurse today this shift.
[2018-12-15 17:20] VITALS: BP 119/67
[2018-12-15 19:52] VITALS: BP 125/54
--- NOTE | 2018-12-15 20:05 | NUR ---
SITTING ON SIDE OF BED WITH DAUGHTER AT SIDE, EATING SNACK, COMPLAINS OF HAVING HIVES TO BACK AND UPPER THIGHS, SKIN IS REDDENED AND IRRITATED. FAMILY AND PATIENT STATE IT IS DUE TO ANTIBIOTICS CURRENTLY IN USE (TETRACYCLINE AND AMOXICILLIN) DR. COLLINS NOTIFIED WITH ORDERS TO START BENDADRYL 25MG IV Q 6 HOURS PRN HIVES. ORDER PLACED AND PHARMACY NOTIFIED. ALSO SAID TO PUT ALLERGY OF PCN.
--- NOTE | 2018-12-16 00:42 | NUR ---
WHILE ON CPAP BECAME VERY UNCOMFORTABLE AND REQUESTED IT BE TAKEN OFF. , RT ASSESSED IMMEDIATELY, TOOK OFF CPAP AND WILL READJUST SETTINGS AND TRY AGAIN TOMORROW.
[2018-12-16 01:19] VITALS: BP 109/63
--- NOTE | 2018-12-16 01:41 | NUR ---
RESTING IN BED QUIELTY WITH O2 DELIVERED VIA NC. CALL CORD IN PLACE ON BEDSIDE. WILL NOTE ANY CHANGE.
--- NOTE | 2018-12-16 03:04 | NUR ---
I have reviewed this patient and I concur with the Shift Assessment completed by the Licensed Practical Nurse today this shift.
--- NOTE | 2018-12-16 03:37 | NUR ---
I have reviewed this patient and I concur with the Shift Assessment completed by the Licensed Practical Nurse today this shift.
[2018-12-16 05:32] LABS: BASOPHILS 0.5 % (0-2); HEMATOCRIT 41.6 % (42.0-54.0); HEMOGLOBIN 13.7 g/dL (13.5-17.5); IMMATURE GRANULOCYTES 1.2 % (0-5); LYMPHOCYTES 22.4 % (15-50); MCHC 32.9 g/dL (31.0-37.0); MEAN PLATELET VOLUME 9.4 fL (7.4-10.4); NEUTROPHILS 62.9 % (40-80); RBC 4.57 10x6/uL (4.20-6.10); RDW 14.5 % (11.5-14.5); WBC 7.7 10x3/uL (4.8-10.8)
[2018-12-16 05:34] LABS: PLATELET COUNT 224 10x3/uL (130-400)
[2018-12-16 05:50] LABS: CALCIUM 8.1 mg/dL (8.5-10.1); CARBON DIOXIDE 23.7 mmol/L (21.0-32.0); CREATININE - SERUM 1.4 mg/dL (0.6-1.3); POTASSIUM - SERUM 4.7 mmol/L (3.5-5.1)
--- NOTE | 2018-12-16 09:00 | NUR ---
PT RESTING EYES CLOSED NO SIGNS OF DISTRESS NOTED FAMILY AT BEDSIDE CL IN REACH EASY RISE AND FALL OF CHEST
[2018-12-16 10:07] VITALS: BP 133/67
[2018-12-16 13:28] VITALS: BP 113/59
[2018-12-16 18:01] VITALS: BP 132/59
--- NOTE | 2018-12-16 18:51 | NUR ---
I have reviewed this patient and I concur with the Shift Assessment completed by the Licensed Practical Nurse today this shift.
[2018-12-16 19:45] VITALS: BP 112/52
--- NOTE | 2018-12-16 19:45 | NUR ---
RCV`D PT. PT SITTING UP ON THE SIDE OF THE BED VISITING WITH A FRIEND AT BEDSIDE. EMPTIED 300ML OF ORANGE DRAINAGE FROM COLOSTOMY BAG COVERING OLD NEPHROSTOMY SITE. BREATHING EVEN AND UNLABORED, DENIES PAIN AT THIS TIME. DENIES ANY NEEDS AT THIS TIME. WILL CONTINUE TO MONITOR. RAILS UP X 2, CALL LIGHT IN REACH.
--- NOTE | 2018-12-16 20:47 | NUR ---
FSBS 117, NO TREATMENT NEEDED AT THIS TIME.
[2018-12-17 05:26] VITALS: BP 126/63
--- NOTE | 2018-12-17 05:52 | NUR ---
FSBS 104, NO TREATMENT NEEDED AT THIS TIME. DENIES ANY FURTHER NEEDS. BED LOW, CALL LIGHT IN REACH, RAILS UP X 2.
--- NOTE | 2018-12-17 07:20 | NUR ---
PT RESTING IN BED WITH EYES CLOSED. OPENS EYES WHEN NAME CALLED. NO ACUTE DISTRESS NOTED. DENIES PAIN AT THIS TIME. SALINE LOC INTACT TO RIGHT HAND, SITE WITHOUT REDNESS OR EDEMA. DENIES FURTHER NEEDS AT THIS TIME. CL WITHIN REACH. ENCOURAGED TO CALL WITH NEEDS. CONTINUE POC
[2018-12-17 08:04] LABS: ANION GAP 14.7 mmol/L (8-16); CALCIUM 8.4 mg/dL (8.5-10.1); CARBON DIOXIDE 21.9 mmol/L (21.0-32.0); CREATININE - SERUM 1.3 mg/dL (0.6-1.3); POTASSIUM - SERUM 4.6 mmol/L (3.5-5.1)
[2018-12-17 08:16] LABS: BASOPHILS 0.8 % (0-2); EOSINOPHILS 3.7 % (0-7); HEMATOCRIT 43.3 % (42.0-54.0); HEMOGLOBIN 14.2 g/dL (13.5-17.5); IMMATURE GRANULOCYTES 0.9 % (0-5); LYMPHOCYTES 20.5 % (15-50); MCH 29.9 pg (26.0-34.0); MCHC 32.8 g/dL (31.0-37.0); MCV 91.2 fL (80.0-100.0); MEAN PLATELET VOLUME 8.9 fL (7.4-10.4); MONOCYTES 7.3 % (2-11); NEUTROPHILS 66.8 % (40-80); PLATELET COUNT 221 10x3/uL (130-400); RBC 4.75 10x6/uL (4.20-6.10); RDW 14.4 % (11.5-14.5); WBC 7.4 10x3/uL (4.8-10.8)
[2018-12-17 09:29] VITALS: BP 111/55
[2018-12-17 13:27] VITALS: BP 112/73
--- NOTE | 2018-12-17 13:51 | MORECARE ---
CASE MANAGEMENT DISCHARGE SUMMARY PATIENT: NIYA LANDON UNIT: [id number] ADM DATE: 12/14/18 AGE: 73 : 47 SEX: M ROOM/BED: D.2236 AUTHOR: DHAVAL BENNETT PHYSICIAN: REFERRING PHYSICIAN: YUE COLLINS MD DATE OF SERVICE: 12/17/18 Discharge Plan Patient Name: NIYA LANDON [facility] [facility] 1945 Planned Disposition: Home Anticipated Discharge Date: Discharge Date: Expected LOS: Initial Reviewer: [id number] Initial Review Date: 12/15/2018 Generated: 12/17/18 2:51 pm Patient Name: NIYA LANDON Page [phone] at 1351 All edits/amendments must be made on the electronic document DICTATION DATE: 12/17/18 1351 PEDIATRIC ALLERGIST: CONTRERAS 12/17/18 1351 RPT#: [id number] [place] DATE: STATUS: ADM IN [facility] [address] [place] [address] END OF REPORT
--- NOTE | 2018-12-17 13:58 | MORECARE ---
CASE MANAGEMENT DISCHARGE SUMMARY PATIENT: NIYA LANDON UNIT: [id number] ADM DATE: 12/14/18 AGE: 73 : 47 SEX: M ROOM/BED: D.2236 AUTHOR: DHVAAL BENNETT PHYSICIAN: REFERRING PHYSICIAN: YUE COLLINS MD DATE OF SERVICE: 12/17/18 Discharge Plan Patient Name: NIYA LANDON [facility] [facility] 1945 Planned Disposition: Home Anticipated Discharge Date: Discharge Date: Expected LOS: Initial Reviewer: NAVARRO Initial Review Date: 12/15/2018 Generated: 12/17/18 2:58 pm Comments DCP- Discharge Planning Updated by NAVARRO: Miriam Gibbons on 12/17/18 12:[address] Patient Name: NIYA LANDON Admission Status: ER Accout number: [id number] Admission Date: 12-14-2018 : 1945 Admission Diagnosis: Attending: YUE COLLINS Current LOS: 3 Anticipated DC Date: Planned Disposition: Home Primary Insurance: A[employer] MEDICARE PPO or HMO Discharge Planning Comments: CÉSAR ESTEBAN THOMAS OF PT STATED SHE IS REQUESTING HH AT DC. SHE STATED THEY WILL PROBABLY NEED HOME O2 WELL. SHE STATED TO CALL HER FOR OTHER QUESTIONS AND CONSENTS FOR PROVIDERS WHEN DC IS NEAR. Rn Licensed Practical: Miriam Gibbons Last DP export: 12/17/18 12:51 pm Patient Name: NIYA LANDON Page [phone] at 1358 All edits/amendments must be made on the electronic document DICTATION DATE: 12/17/18 1357 CANDLE MOLDER MACHINE: CONTRERAS 12/17/18 1357 RPT#: [id number] DC DATE: STATUS: ADM IN [facility] [address] [place] [address] END OF REPORT
[2018-12-17 18:22] VITALS: BP 116/58
--- NOTE | 2018-12-17 19:49 | NUR ---
RCV`D PT. PT SITTING UP AT THE BEDSIDE. EMPTIED 400ML OF REAL COLORED URINE FROM NEPHROSTOMY SITE BAG. BREATHING EVEN AND NONLABORED, WEARING 2L VIA NC. DENIES PAIN OR NEEDS AT THIS TIME. WILL CONTINUE TO MONITOR.
--- NOTE | 2018-12-17 20:04 | NUR ---
FSBS 139, NO TREATMENT NEEDED AT THIS TIME.
[2018-12-17 20:14] VITALS: BP 119/68
--- NOTE | 2018-12-18 00:34 | NUR ---
PT PRINTED CIRCUIT BOARD PANELS DEVELOPER LIGHT HAS REMOVED HIS CPAP MASK AND ASKED ME TO TURN OFF THE MACHINE. AFTER TURNING IT OFF I INFORMED RT MARTA. EMPTIED 400ML OF BLOOD TINGED DRAINAGE FROM NEPHROSTOMY SITE BAG. DENIES ANY FURTHER NEEDS AT THIS TIME. BED LOW, CALL LIGHT IN REACH, RAILS UP X 2.
[2018-12-18 02:12] VITALS: BP 120/60
--- NOTE | 2018-12-18 05:17 | NUR ---
FSBS 112, NO TREATMENT NEEDED AT THIS TIME. EMPTIED 400ML OF BLOOD COLORED DRAINAGE FROM NEPHROSTOMY SITE BAG. PT SITTING UP ON SIDE OF THE BED, DENIES ANY NEEDS AT THIS TIME.
[2018-12-18 05:26] VITALS: BP 104/62
--- NOTE | 2018-12-18 07:38 | NUR ---
REC'D IN BED RESTING WITH EYES CLOSED EASILY TO AROUSED WHEN NAME IS CALLED. RESP EVEN AND UNLABORED WITH NO DISTRESS NOTED. CAN EXPRESS NEEDS AND WANTS. NO C/O NOTED OR VOICED. ASSESSMENT COMPLETED. C/L IN REACH AT BEDSIDE.
[2018-12-18 09:02] VITALS: BP 98/52
--- NOTE | 2018-12-18 12:00 | NUR ---
PT NEPHROSTOMY CONTINUE TO PUT OUT BLOODY LOOKING URINE. NO C/O PAIN OR DISCOMFORT NOTED OR VOICED. C/L IN REACH AT BEDSIDE.
--- NOTE | 2018-12-18 12:46 | NUR ---
I have reviewed this patient and I concur with the Shift Assessment completed by the Licensed Practical Nurse today this shift.
[2018-12-18 12:54] VITALS: BP 96/55
[2018-12-18 17:42] VITALS: BP 115/68
--- NOTE | 2018-12-18 20:38 | NUR ---
rec'd. chge of shift sitting on side of bed. encouraged to elevate feet in bed or recliner states took lasix so i'm waiting on it to wear off.3/4+ edema to both feet. with some discoloration to left foot.cool to touch.will continue to monitor for any chges. in neurovascular status and follow current plan of care
[2018-12-18 21:10] VITALS: BP 112/59
[2018-12-19 01:18] VITALS: BP 117/58
--- NOTE | 2018-12-19 02:33 | NUR ---
I have reviewed this patient and I concur with the Shift Assessment completed by the Licensed Practical Nurse today this shift.
[2018-12-19 05:22] VITALS: BP 111/61
[2018-12-19 05:53] LABS: ANION GAP 12.2 mmol/L (8-16); CALCIUM 8.3 mg/dL (8.5-10.1); CARBON DIOXIDE 24.6 mmol/L (21.0-32.0); CREATININE - SERUM 1.4 mg/dL (0.6-1.3)
[2018-12-19 06:15] LABS: POTASSIUM - SERUM 3.8 mmol/L (3.5-5.1)
[2018-12-19 06:43] LABS: BASOPHILS 0.6 % (0-2); EOSINOPHILS 2.9 % (0-7); HEMATOCRIT 42.3 % (42.0-54.0); HEMOGLOBIN 13.9 g/dL (13.5-17.5); IMMATURE GRANULOCYTES 0.7 % (0-5); LYMPHOCYTES 20.1 % (15-50); MCH 29.6 pg (26.0-34.0); MCHC 32.9 g/dL (31.0-37.0); MEAN PLATELET VOLUME 9.3 fL (7.4-10.4); MONOCYTES 5.7 % (2-11); PLATELET COUNT 255 10x3/uL (130-400); RDW 14.1 % (11.5-14.5)
--- NOTE | 2018-12-19 07:05 | NUR ---
I have reviewed this patient and I concur with the Shift Assessment completed by the Licensed Practical Nurse today this shift.
[2018-12-19 08:14] VITALS: BP 107/70
[2018-12-19] MEDS ORDERED: LEVOFLOXACIN500 MG PO (08:22)
[2018-12-19] MEDS ORDERED: BROVANA15 MCG/2 M INH (08:23)
[2018-12-19] MEDS ORDERED: IPRAT-ALBUT 0.5-3 ML UPD (08:24)
[2018-12-19] MEDS ORDERED: ELIQUIS5 MG PO (08:25)
[2018-12-19] MEDS ORDERED: MIRAPEX0.125 MG PO (08:25)
[2018-12-19] MEDS ORDERED: NORCO-7.5 PO (08:25)
[2018-12-19] MEDS ORDERED: FUROSEMIDE20 MG PO (08:32)
[2018-12-19] MEDS ORDERED: POTASSIUM CHLO10 ME1 PO (08:32)
--- NOTE | 2018-12-19 09:36 | MORECARE ---
CASE MANAGEMENT DISCHARGE SUMMARY PATIENT: NIYA LANDON UNIT: [id number] ADM DATE: 12/14/18 AGE: 73 : 47 SEX: M ROOM/BED: D.2236 AUTHOR: DHAVAL BENNETT PHYSICIAN: REFERRING PHYSICIAN: YUE COLLINS MD DATE OF SERVICE: 12/19/18 Discharge Plan Patient Name: NIYA LANDON [facility] [facility] 1945 Planned Disposition: Home Anticipated Discharge Date: Discharge Date: Expected LOS: Initial Reviewer: NAVARRO Initial Review Date: 12/15/2018 Generated: 12/19/18 10:35 am Comments DCP- Discharge Planning Updated by NAVARRO: Miriam Gibbons on 12/17/18 12:[address] Patient Name: NIYA LANDON Admission Status: ER Accout number: [id number] Admission Date: 12-14-2018 : 1945 Admission Diagnosis: Attending: YUE COLLINS Current LOS: 3 Anticipated DC Date: Planned Disposition: Home Primary Insurance: AETNA MEDICARE PPO or HMO Discharge Planning Comments: CÉSAR ORELLANA MARTHA OF PT STATED SHE IS REQUESTING HH AT DC. SHE STATED THEY WILL PROBABLY NEED HOME O2 WELL. SHE STATED TO CALL HER FOR OTHER QUESTIONS AND CONSENTS FOR PROVIDERS WHEN DC IS NEAR. Gas Meter Checker: Miriam Gibbons External Providers External Provider: Prem Next Contact Date: Service Request Date: Service Type: Resolution: Reviewer: Comments: Last DP export: 12/17/18 12:58 pm Patient Name: NIYA LANDON Page [phone] at 0936 All edits/amendments must be made on the electronic document DICTATION DATE: 12/19/18934 ENTERTAINMENT DANCER: CONTRERAS 12/19/18934 RPT#: [id number] DC DATE: STATUS: ADM IN [facility] [address] [place] [address] END OF REPORT
--- NOTE | 2018-12-19 09:43 | MORECARE ---
CASE MANAGEMENT DISCHARGE SUMMARY PATIENT: NIYA LANDON UNIT: [id number] ADM DATE: 12/14/18 AGE: 73 : 47 SEX: M ROOM/BED: D.2236 AUTHOR: DHAVAL BENNETT PHYSICIAN: REFERRING PHYSICIAN: YUE COLLINS MD DATE OF SERVICE: 12/19/18 Discharge Plan Patient Name: NIYA LANDON [facility] [facility] 1945 Planned Disposition: Home Anticipated Discharge Date: Discharge Date: Expected LOS: Initial Reviewer: NAVARRO Initial Review Date: 12/15/2018 Generated: 12/19/18 10:42 am Comments DCP- Discharge Planning Updated by NAVARRO: Miriam Gibbons on 12/17/18 12:[address] Patient Name: NIYA LANDON Admission Status: ER Accout number: [id number] Admission Date: 12-14-2018 : 1945 Admission Diagnosis: Attending: YUE COLLINS Current LOS: 3 Anticipated DC Date: Planned Disposition: Home Primary Insurance: AETNA MEDICARE PPO or HMO Discharge Planning Comments: CÉSAR ORELLANA MARTHA OF PT STATED SHE IS REQUESTING HH AT DC. SHE STATED THEY WILL PROBABLY NEED HOME O2 WELL. SHE STATED TO CALL HER FOR OTHER QUESTIONS AND CONSENTS FOR PROVIDERS WHEN DC IS NEAR. Finish Repairer: Miriam Gibbons External Providers [facility] Next Contact Date: Service Request Date: Service Type: Resolution: Reviewer: Comments: Last DP export: 12/19/18 8:36 am Patient Name: NIYA LANDON Page [phone] at 0943 All edits/amendments must be made on the electronic document DICTATION DATE: 12/19/18941 PIPE THREADING MACHINE OPERATOR: CONTRERAS 12/19/18941 RPT#: [id number] DC DATE: STATUS: ADM IN [facility] [address] [place] [address] END OF REPORT
[2018-12-19] MEDS ORDERED: BREO ELLIPTA 21 EACH (09:47)
--- NOTE | 2018-12-19 09:53 | EC ---
PATIENT:NIYA LANDON DATE OF SERVICE: 12/14/18 SEX: M MEDICAL RECORD: [id number] DATE OF : [birth year] LOCATION:[facility] AGE OF PATIENT: 73 ADMISSION DATE: 12/14/18 REFERRING PHYSICIAN: INTERPRETING PHYSICIAN: DANYELL AMIN MD ECHOCARDIOGRAM REPORT ECHO CHARGES 4 ECHO COMPLETE Date: 12/15/18 CLINICAL DIAGNOSIS: DYSPNEA ECHOCARDIOGRAPHIC MEASUREMENTS (adult normal given) AC root (d.<3.7cm) 3.3 cm LV Septum d (<1.2 cm> 1.6 cm Valve Excursion 2.4 cm LV Septum (systole) 1.8 cm Left Atria (s.<4.0cm> 3.6 cm LVPW d(<1.2cm) 1.3 cm RV (d.<2.3cm) 4.2 cm LVPW (sytole) 1.7 cm LV diastole(<5.6CM) 6.2 cm MV E-F(>70mm/sec) cm LV systole 4.8 cm LVOT Diameter 2.6 cm MV exc.(>10mm) cm Est.ejection fraction (50-75%) % DOPPLER: LVIT cm/sec A 31 cm/sec E 34 cm/sec LA cm/sec RVSP 16.9 mmHg LVOT 133 cm/sec AOP1/2T m/s Asc. Ao 143 cm/sec RVOT 80 cm/sec RA cm/sec PA 76 cm/sec AV Gradient Peak 8.2 mmHg AV Mean 4.6 mmHg AV Area cm MV Gradient Peak 1.5 mmHg MV Mean 0.7 mmHg MV Area cm COMMENTS: Correction Officer: Jam PICKETTSASKIA JUAN [employer] Teacher: Enrike Amin TAPE# PACS Pericardial Effusion N DATE OF SERVICE: 12/15/2018 FINDINGS: 1. Technically difficult study secondary to patient size. 2. The left ventricular chamber size is mildly dilated. Left ventricular systolic function is mildly depressed. Overall ejection fraction in the 40% range. 3. Left atrium, right atrium, right ventricular chamber sizes are within normal limits. 4. Valvular structures have normal structure and motion. ECHOCARDIOGRAM REPORT [id number] NIYA LANDON 5. Doppler interrogation reveals mild tricuspid regurgitation, no other valvular insufficiency or stenosis. Pulmonary systolic pressure is normal estimated at 17 mmHg. 6. No evidence of pericardial effusion or left ventricular thrombus. TRANSINT:[id number] Voice Confirmation ID: [id number] DOCUMENT ID: [id number] DANYELL AMIN MD at 0953 CC: [id number] DICTATION DATE: 12/15/18 185 TAPER AND FLOATER: 12/16/18 0009 ADM IN [facility] [address] [id number]
[2018-12-19] MEDS ORDERED: SYMBICORT 16010.2 GM INH (10:07)
--- NOTE | 2018-12-19 10:59 | MORECARE ---
CASE MANAGEMENT DISCHARGE SUMMARY PATIENT: NIYA LANDON UNIT: [id number] ADM DATE: 12/14/18 AGE: 73 : [birth year] SEX: M ROOM/BED: D.2236 AUTHOR: SABRINADOC PHYSICIAN: REFERRING PHYSICIAN: YUE COLLINS MD DATE OF SERVICE: 12/19/18 Discharge Plan Patient Name: NIYA LANDON Facility: [facility]:[place] : 1945 Planned Disposition: Home Anticipated Discharge Date: Discharge Date: Expected LOS: Initial Reviewer: [email or web address] Initial Review Date: 12/15/2018 Generated: 12/19/18 11:58 am Comments DCP- Discharge Planning Updated by [id number]: Miriam Gibbons on 12/17/18 12:[address] Patient Name: NIYA LANDON Admission Status: ER Accout number: [id number] Admission Date: 12-14-2018 : 1945 Admission Diagnosis: Attending: YUE COLLINS Current LOS: 3 Anticipated DC Date: Planned Disposition: Home Primary Insurance: AETNA MEDICARE PPO or HMO Discharge Planning Comments: DIANA THOMAS OF PT STATED SHE IS REQUESTING HH AT DC. SHE STATED THEY WILL PROBABLY NEED HOME O2 WELL. SHE STATED TO CALL HER FOR OTHER QUESTIONS AND CONSENTS FOR PROVIDERS WHEN DC IS NEAR. Vitreo Retinal Surgeon: Miriam Gibbons DCPIA - Discharge Planning Initial Assessment Updated by [email or web address]: Kassy Brandt on 12/19/18 10:53 am * Is the patient Alert and Oriented? Yes * How many steps to enter\exit or inside your home? 0/0 * PCP Dr. Collins * Pharmacy [facility] in [place] * Preadmission Environment Home with Family * ADLs Independent * Equipment Nebulizer * List name and contact numbers for known caregivers / representatives who currently or will assist patient after discharge: Diana THOMAS- DTR - [phone] * Verbal permission to speak to the caregivers and representatives has been obtained from the patient. Yes * Community resources currently utilized None * Additional services required to return to the preadmission environment? Yes * Can the patient safely return to the preadmission environment? Yes * Has this patient been hospitalized within the prior 30 days at any hospital? No Last DP export: 12/19/18 8:43 am Patient Name: NIYA LANDON Page 73895 at 1059 All edits/amendments must be made on the electronic document DICTATION DATE: 12/19/181057 MUSIC WRITER: CONTRERAS 12/19/181057 RPT#: [id number] DC DATE: STATUS: ADM IN [facility] [address] [place] [address] END OF REPORT
--- NOTE | 2018-12-19 11:07 | MORECARE ---
CASE MANAGEMENT DISCHARGE SUMMARY PATIENT: NIYA LANDON UNIT: [id number] ADM DATE: 12/14/18 AGE: 73 : 47 SEX: M ROOM/BED: D.2236 AUTHOR: DHAVAL BENNETT PHYSICIAN: REFERRING PHYSICIAN: YUE COLLINS MD DATE OF SERVICE: 12/19/18 Discharge Plan Patient Name: NIYA LANDON Facility: [facility]:[place] : 1945 Planned Disposition: Home Anticipated Discharge Date: Discharge Date: Expected LOS: Initial Reviewer: [email or web address] Initial Review Date: 12/15/2018 Generated: 12/19/18 12:07 pm Comments DCP- Discharge Planning Updated by [id number]: Kassy Brandt on 12/19/18 10:[address] Patient Name: NIYA LANDON Admission Status: ER Accout number: [id number] Admission Date: 12-14-2018 : 1945 Admission Diagnosis:CHRONIC OBSTRUCTIVE PULMONARY DISEASE, UNSPECIFIED Attending: YUE COLLINS Current LOS: 5 Anticipated DC Date: Planned Disposition: Home Primary Insurance: AETNA MEDICARE PPO or HMO Discharge Planning Comments: Received discharge orders. CM met with patient to discuss discharge planning/needs. Walk test completed and oxygen saturation is 88% on room air with exercise. He states he lives with his step son, daughter in law and 7 year old grand son. He states he is independent with all ADL's and AIDL's. PATRICIO for [facility] for oxygen and [facility] health signed. I spoke with Naseem and she states they will bring up his portable. I spoke with Lorenza at [facility] and clinical faxed. I informed her of need for urostomy care and supplies. I spoke with Dr. Brandon concerning discharge meds and he does not want him to have Brovana. He states to change to symbicort inhaler 2 puffs BID, pharmacist (Elyssa) at [facility] even though it's preferred med it will need a preauthorization. I spoke with Dr. Brandon and he states they can send it to the office, Dr. Jefferson is there and will sign. Dr. Brandon also wants the Duoneb to remain QID and I sent this to [facility]. DWO signed and faxed back to [facility]. CM will continue to follow and assist with discharge planning/needs Patient's cell phone:[phone] Ceiling Installer: Kassy Brandt DCP- Discharge Planning Updated by [email or web address]: Miriam Gibbons on 12/17/18 12:[address] Patient Name: NIYA LANDON Admission Status: ER Accout number: [id number] Admission Date: 12-14-2018 : 1945 Admission Diagnosis: Attending: YUE COLLINS Current LOS: 3 Anticipated DC Date: Planned Disposition: Home Primary Insurance: AETNA MEDICARE PPO or HMO Discharge Planning Comments: CÉSAR ORELLANA MARTHA OF PT STATED SHE IS REQUESTING HH AT DC. SHE STATED THEY WILL PROBABLY NEED HOME O2 WELL. SHE STATED TO CALL HER FOR OTHER QUESTIONS AND CONSENTS FOR PROVIDERS WHEN DC IS NEAR. Ceiling Installer: Miriam Gibbons DCPIA - Discharge Planning Initial Assessment Updated by [email or web address]: Kassy Brandt on 12/19/18 10:53 am * Is the patient Alert and Oriented? Yes * How many steps to enter\exit or inside your home? 0/0 * PCP Dr. Collins * Pharmacy [facility] in [place] * Preadmission Environment Home with Family * ADLs Independent * Equipment Nebulizer * List name and contact numbers for known caregivers / representatives who currently or will assist patient after discharge: César THOMAS- DTR - [phone] * Verbal permission to speak to the caregivers and representatives has been obtained from the patient. Yes * Community resources currently utilized None * Additional services required to return to the preadmission environment? Yes * Can the patient safely return to the preadmission environment? Yes * Has this patient been hospitalized within the prior 30 days at any hospital? No Last DP export: 12/19/18 9:59 am Patient Name: NIYA LANDON Page 97568 at 1107 All edits/amendments must be made on the electronic document DICTATION DATE: 12/19/18 1107 ADULT CARE PROVIDER: CONTRERAS 12/19/18 1107 RPT#: [id number] DC DATE: STATUS: ADM IN [place] [id number] [place] [address] END OF REPORT
--- NOTE | 2018-12-19 11:12 | NUR ---
I have reviewed this patient and I concur with the Shift Assessment completed by the Licensed Practical Nurse today this shift.
--- NOTE | 2018-12-19 12:08 | MORECARE ---
CASE MANAGEMENT DISCHARGE SUMMARY PATIENT: NIYA LANDON UNIT: [id number] ADM DATE: 12/14/18 AGE: 73 : 47 SEX: M ROOM/BED: D.2236 AUTHOR: DHAVAL BENNETT PHYSICIAN: REFERRING PHYSICIAN: YUE COLLINS MD DATE OF SERVICE: 12/19/18 Discharge Plan Patient Name: NIYA LANDON Facility: [facility]:[place] : 1945 Planned Disposition: Home Anticipated Discharge Date: Discharge Date: Expected LOS: Initial Reviewer: [email or web address] Initial Review Date: 12/15/2018 Generated: 12/19/18 1:07 pm Comments DCP- Discharge Planning Updated by [id number]: Kassy Brandt on 12/19/18 11:[address] Lorenza with [facility] states they should be able to see patient tomorrow. I gave her patient's cell phone number. I informed him that his nebulizer medications will come from [facility] instead of pharmacy, voiced understanding. CM will continue to follow and assist with discharge planning/needs. DCP- Discharge Planning Updated by [email or web address]: Kassy Brandt on 12/19/18 10:[address] Patient Name: NIYA LANDON Admission Status: ER Accout number: [id number] Admission Date: 12-14-2018 : 1945 Admission Diagnosis:CHRONIC OBSTRUCTIVE PULMONARY DISEASE, UNSPECIFIED Attending: YUE COLLINS Current LOS: 5 Anticipated DC Date: Planned Disposition: Home Primary Insurance: AETNA MEDICARE PPO or HMO Discharge Planning Comments: Received discharge orders. CM met with patient to discuss discharge planning/needs. Walk test completed and oxygen saturation is 88% on room air with exercise. He states he lives with his step son, daughter in law and 7 year old grand son. He states he is independent with all ADL's and AIDL's. PATRICIO for [facility] for oxygen and [employer] [facility] home health signed. I spoke with Naseem and she states they will bring up his portable. I spoke with Lorenza at [facility] and clinical faxed. I informed her of need for urostomy care and supplies. I spoke with Dr. Brandon concerning discharge meds and he does not want him to have Brovana. He states to change to symbicort inhaler 2 puffs BID, pharmacist (Elyssa) at [facility] states even though it's preferred med it will need a preauthorization. I spoke with Dr. Brandon and he states they can send it to the office, Dr. Jefferson is there and will sign. Dr. Brandon also wants the Duoneb to remain QID and I sent this to [facility]. DWO signed and faxed back to [facility]. CM will continue to follow and assist with discharge planning/needs Patient's cell phone:[phone] Concession Cashier: Kassy Brandt DCP- Discharge Planning Updated by [id number]: Miriam Gibbons on 12/17/18 12:[address] Patient Name: NIYA LANDON Admission Status: ER Accout number: [id number] Admission Date: 12-14-2018 : 1945 Admission Diagnosis: Attending: YUE COLLINS Current LOS: 3 Anticipated DC Date: Planned Disposition: Home Primary Insurance: AETNA MEDICARE PPO or HMO Discharge Planning Comments: CÉSAR THOMAS OF PT STATED SHE IS REQUESTING HH AT DC. SHE STATED THEY WILL PROBABLY NEED HOME O2 WELL. SHE STATED TO CALL HER FOR OTHER QUESTIONS AND CONSENTS FOR PROVIDERS WHEN DC IS NEAR. Concession Cashier: Miriam Gibbons DCPIA - Discharge Planning Initial Assessment Updated by [email or web address]: Kassy Brandt on 12/19/18 10:53 am * Is the patient Alert and Oriented? Yes * How many steps to enter\exit or inside your home? 0/0 * PCP Dr. Collins * Pharmacy [facility] in [place] * Preadmission Environment Home with Family * ADLs Independent * Equipment Nebulizer * List name and contact numbers for known caregivers / representatives who currently or will assist patient after discharge: César Gulshan THOMAS- DTR - [phone] * Verbal permission to speak to the caregivers and representatives has been obtained from the patient. Yes * Community resources currently utilized None * Additional services required to return to the preadmission environment? Yes * Can the patient safely return to the preadmission environment? Yes * Has this patient been hospitalized within the prior 30 days at any hospital? No Coverage Notice Reviewer: [id number] - Kassy Brandt Notice Issued Date-Time: 12/19/2018 9:20 Notice Type: Patient Choice Letter Notice Delivered To: Patient Relationship to Patient: Self Repairer Auto Clocks Name: Delivery Method: HAND - Hand Delivered Maria A Days: Prior Verbal Notification: Recipient Understood Notice: Yes Recipient Signature: Yes Med Rec Note Co-signed by Attending: Coverage Notice Comment: PATRICIO FOR SABRINA COLLAZO Reviewer: [id number] Riley Brandt Notice Issued Date-Time: 12/19/2018 9:20 Notice Type: IM Discharge Notice Notice Delivered To: Patient Relationship to Patient: Self Repairer Auto Clocks Name: Delivery Method: HAND - Hand Delivered Maria A Days: Prior Verbal Notification: Recipient Understood Notice: Yes Recipient Signature: Yes Med Rec Note Co-signed by Attending: Coverage Notice Comment: IMM explained, signed, given, copy placed in MR Last DP export: 12/19/18 10:07 am Patient Name: NIYA LANDON Page [phone] at 1208 All edits/amendments must be made on the electronic document DICTATION DATE: 12/19/181206 CAR PAINTER: CONTRERAS 12/19/181206 RPT#: [id number] DC DATE: STATUS: ADM IN [facility] [address] [place] [address] END OF REPORT
[2018-12-19 12:13] VITALS: BP 106/58
--- NOTE | 2018-12-19 12:39 | NUR ---
DC HOME AT THIS TIME. VOICE UNDERSTANDING OF DC ORDERS. IV DC. NO CONCERN NOTED OR VOICED. IN STABLE CONDITION UPON DC.
--- NOTE | 2018-12-19 15:57 | MORECARE ---
CASE MANAGEMENT DISCHARGE SUMMARY PATIENT: NIYA LANDON UNIT: [id number] ADM DATE: 12/14/18 AGE: 73 : [birth year] SEX: M ROOM/BED: D.2236 AUTHOR: DHAVAL BENNETT PHYSICIAN: REFERRING PHYSICIAN: YUE COLLINS MD DATE OF SERVICE: 12/19/18 Discharge Plan Patient Name: NIYA LANDON Facility: [facility]:[place] : 1945 Planned Disposition: Home Anticipated Discharge Date: Discharge Date: 12/19/2018 Expected LOS: Initial Reviewer: [email or web address] Initial Review Date: 12/15/2018 Generated: 12/19/18 4:56 pm Comments DCP- Discharge Planning Updated by [email or web address]: Kassy Brandt on 12/19/18 11:[address] Lorenza with [facility] states they should be able to see patient tomorrow. I gave her patient's cell phone number. I informed him that his nebulizer medications will come from [facility] instead of pharmacy, voiced understanding. CM will continue to follow and assist with discharge planning/needs. DCP- Discharge Planning Updated by [id number]: Kassy Brandt on 12/19/18 10:[address] Patient Name: NIYA LANDON Admission Status: ER Accout number: [id number] Admission Date: 12-14-2018 : 1945 Admission Diagnosis:CHRONIC OBSTRUCTIVE PULMONARY DISEASE, UNSPECIFIED Attending: YUE COLLINS Current LOS: 5 Anticipated DC Date: Planned Disposition: Home Primary Insurance: AETNA MEDICARE PPO or HMO Discharge Planning Comments: Received discharge orders. CM met with patient to discuss discharge planning/needs. Walk test completed and oxygen saturation is 88% on room air with exercise. He states he lives with his step son, daughter in law and 7 year old grand son. He states he is independent with all ADL's and AIDL's. PATRICIO for [facility] for oxygen and [employer] home health signed. I spoke with Naseem and she states they will bring up his portable. I spoke with Lorenza at [facility] and clinical faxed. I informed her of need for urostomy care and supplies. I spoke with Dr. Brandon concerning discharge meds and he does not want him to have Brovana. He states to change to symbicort inhaler 2 puffs BID, pharmacist (Elyssa) at [facility] states even though it's preferred med it will need a preauthorization. I spoke with Dr. Brandon and he states they can send it to the office, Dr. Jefferson is there and will sign. Dr. Brandon also wants the Duoneb to remain QID and I sent this to [facility]. DWO signed and faxed back to [facility]. CM will continue to follow and assist with discharge planning/needs Patient's cell phone:[phone] Fire Suppression Captain: Kassy Brandt DCP- Discharge Planning Updated by [id number]: Miriam Gibbons on 12/17/18 12:[address] Patient Name: NIYA LANDON Admission Status: ER Accout number: [id number] Admission Date: 12-14-2018 : 1945 Admission Diagnosis: Attending: YUE COLLINS Current LOS: 3 Anticipated DC Date: Planned Disposition: Home Primary Insurance: AETNA MEDICARE PPO or HMO Discharge Planning Comments: DIANA ESTEBAN THOMAS OF PT STATED SHE IS REQUESTING HH AT DC. SHE STATED THEY WILL PROBABLY NEED HOME O2 WELL. SHE STATED TO CALL HER FOR OTHER QUESTIONS AND CONSENTS FOR PROVIDERS WHEN DC IS NEAR. Fire Suppression Captain: Miriam Gibbons DCPIA - Discharge Planning Initial Assessment Updated by [id number]: Kassy Brandt on 12/19/18 10:53 am * Is the patient Alert and Oriented? Yes * How many steps to enter\exit or inside your home? 0/0 * PCP Dr. Collins * Pharmacy [facility] in [place] * Preadmission Environment Home with Family * ADLs Independent * Equipment Nebulizer * List name and contact numbers for known caregivers / representatives who currently or will assist patient after discharge: Dianajulianna THOMAS- DTR - [phone] * Verbal permission to speak to the caregivers and representatives has been obtained from the patient. Yes * Community resources currently utilized None * Additional services required to return to the preadmission environment? Yes * Can the patient safely return to the preadmission environment? Yes * Has this patient been hospitalized within the prior 30 days at any hospital? No Coverage Notice Reviewer: [id number] - Kassy Brandt Notice Issued Date-Time: 12/19/2018 9:20 Notice Type: Patient Choice Letter Notice Delivered To: Patient Relationship to Patient: Self Manuscript Reader Name: Delivery Method: HAND - Hand Delivered Maria A Days: Prior Verbal Notification: Recipient Understood Notice: Yes Recipient Signature: Yes Med Rec Note Co-signed by Attending: Coverage Notice Comment: PATRICIO FOR SABRINA PACHECO AND OPALTOMAS Reviewer: [id number] Riley Brandt Notice Issued Date-Time: 12/19/2018 9:20 Notice Type: IM Discharge Notice Notice Delivered To: Patient Relationship to Patient: Self Manuscript Reader Name: Delivery Method: HAND - Hand Delivered Maria A Days: Prior Verbal Notification: Recipient Understood Notice: Yes Recipient Signature: Yes Med Rec Note Co-signed by Attending: Coverage Notice Comment: IMM explained, signed, given, copy placed in MR Last DP export: 12/19/18 11:08 am Patient Name: NIYA LANDON Page 63386 at 1557 All edits/amendments must be made on the electronic document DICTATION DATE: 12/19/18 1556 MERCHANDISER RETAIL REPRESENTATIVE: CONTRERAS 12/19/18 1556 RPT#: [id number] DC DATE:12/19/18 STATUS: DIS IN [facility] [address] [place] [address] END OF REPORT
== END 2018-12-19 12:40 | disposition home health service (06) | DRG 177 ==
LOC: D.ER 17:27 → D.MS 23:35
PROVIDERS: Family Medicine; ADMIT Family Medicine; ATTEND Family Medicine
DX: J69.0 Pneumonitis due to inhalation of food and vomit (principal); I50.21 Acute systolic (congestive) heart failure; I82.432 Acute embolism and thrombosis of left popliteal vein; J98.11 Atelectasis; J44.0 Chronic obstructive pulmonary disease with (acute) lower respiratory infection; F17.210 Nicotine dependence, cigarettes, uncomplicated; Z86.73 Personal history of transient ischemic attack (TIA), and cerebral infarction without residual deficits; I12.9 Hypertensive chronic kidney disease with stage 1 through stage 4 chronic kidney disease, or unspecified chronic kidney disease; N18.9 Chronic kidney disease, unspecified; E11.22 Type 2 diabetes mellitus with diabetic chronic kidney disease; N99.522 Malfunction of incontinent external stoma of urinary tract; Y84.9 Medical procedure, unspecified as the cause of abnormal reaction of the patient, or of later complication, without mention of misadventure at the time of the procedure; T83.022A Displacement of nephrostomy catheter, initial encounter

== ENCOUNTER → 2018-12-27 17:47 | Outpatient (CLI) | payer MEDICARE ==
[2018-12-15 00:59] VITALS: BMI 39.1
[~2018-12-27 17:47] MED LIST changes: +BREO ELLIPTA 21 EACH; +BROVANA15 MCG/2 M INH; +ELIQUIS5 MG PO; +FUROSEMIDE20 MG PO; +HYDROCODONE-A1 UDTA2 PO; +IPRAT-ALBUT 0.5-3 ML UPD; +LEVOFLOXACIN500 MG PO; +MIRAPEX0.125 MG PO; +NORCO-7.5 PO; +POTASSIUM CHLO10 ME1 PO; +SYMBICORT 16010.2 GM INH
== END | disposition home or self-care (01) ==
LOC: D.LABREF 17:47
PROVIDERS: ATTEND Urology
DX: N39.0 Urinary tract infection, site not specified (principal)

== ENCOUNTER → 2019-06-08 13:09 | Outpatient (CLI) | payer MEDICARE ==
[2018-12-15 00:59] VITALS: BMI 39.1
== END | disposition home or self-care (01) ==
LOC: D.RT 13:09
PROVIDERS: ATTEND Internal Medicine Pulmonary Disease
DX: J44.9 Chronic obstructive pulmonary disease, unspecified (principal)

== ENCOUNTER → 2019-06-14 07:54 | Outpatient (CLI) | payer MEDICARE ==
[2018-12-15 00:59] VITALS: BMI 39.1
[2019-06-14 09:10] LABS: CREATININE - SERUM 1.4 mg/dL (0.6-1.3)
== END | disposition home or self-care (01) ==
LOC: D.CT 07:54
PROVIDERS: ATTEND Thoracic Surgery (Cardiothoracic Vascular Surgery)
DX: I71.4 Abdominal aortic aneurysm, without rupture (principal)

== ENCOUNTER → 2019-07-16 09:02 | Outpatient (CLI) | payer MEDICARE ==
[2019-06-28 23:25] VITALS: BMI 39.1
[~2019-07-16 09:02] MED LIST changes: +CYCLOBENZAPRINE10 MG PO; +TORADOL10 MG PO
== END | disposition home or self-care (01) ==
LOC: D.US 09:00
PROVIDERS: ATTEND Internal Medicine Pulmonary Disease
DX: I82.409 Acute embolism and thrombosis of unspecified deep veins of unspecified lower extremity (principal)

== ENCOUNTER 2019-10-10 12:03 | Emergency (ER) | payer MEDICARE ==
[~2019-10-10] VITALS: Ht 180.3 cm; Wt 124.1 kg
[2019-10-10 12:06] VITALS: Ht 180.3 cm; Wt 124.1 kg
[2019-10-10 13:10] LABS: ANION GAP 12.6 mmol/L (8-16); CALCIUM 8.6 mg/dL (8.5-10.1); CARBON DIOXIDE 24.8 mmol/L (21.0-32.0); CREATININE - SERUM 1.5 mg/dL (0.6-1.3); POTASSIUM - SERUM 4.4 mmol/L (3.5-5.1)
[2019-10-10 13:12] LABS: BASOPHILS 0.6 % (0-2); EOSINOPHILS 2.4 % (0-7); HEMATOCRIT 48.4 % (42.0-54.0); HEMOGLOBIN 15.6 g/dL (13.5-17.5); MCH 27.7 pg (26.0-34.0); MCHC 32.2 g/dL (31.0-37.0); MCV 85.8 fL (80.0-100.0); MEAN PLATELET VOLUME 9.2 fL (7.4-10.4); MONOCYTES 6.4 % (2-11); NEUTROPHILS 75.6 % (40-80); RBC 5.64 10x6/uL (4.20-6.10); RDW 17.4 % (11.5-14.5); WBC 7.2 10x3/uL (4.8-10.8)
[2019-10-10 13:13] LABS: PLATELET COUNT 162 10x3/uL (130-400)
[2019-10-10 13:15] LABS: ALBUMIN 3.5 g/dL (3.4-5.0); BILIRUBIN - TOTAL 0.86 mg/dL (0.2-1.3); PROTEIN - SERUM 6.9 g/dL (6.4-8.2)
[2019-10-10 13:21] LABS: APTT 32.6 SECONDS (22.8-39.4); INR 1.22 (0.85-1.17); PROTIME 15.3 SECONDS (11.6-15.0)
[2019-10-10 13:22] LABS: D-DIMER-QUANTITATIVE 0.95 ug/mLFEU (0.20-0.54)
[2019-10-10] MEDS ORDERED: CYCLOBENZAPRINE10 MG PO (14:04)
[2019-10-10 15:57] VITALS: BP 125/85
== END 2019-10-10 16:06 | disposition home or self-care (01) ==
LOC: D.ER 12:03
PROVIDERS: Family Medicine
DX: M54.5 Low back pain (principal); G89.29 Other chronic pain; I12.9 Hypertensive chronic kidney disease with stage 1 through stage 4 chronic kidney disease, or unspecified chronic kidney disease; E11.22 Type 2 diabetes mellitus with diabetic chronic kidney disease; N18.9 Chronic kidney disease, unspecified; Z72.0 Tobacco use; Z86.73 Personal history of transient ischemic attack (TIA), and cerebral infarction without residual deficits; M79.605 Pain in left leg; J44.9 Chronic obstructive pulmonary disease, unspecified

== ENCOUNTER 2019-12-06 11:32 | Inpatient (IN) | payer MEDICARE ==
[~2019-12-06] VITALS: Ht 180.3 cm; Wt 131.8 kg
[2019-12-06] VITALS (37 sets, daily range): BP systolic 72–116; BP diastolic 47–91; BMI 42.9
--- NOTE | ~2019-12-06 | EC ---
PATIENT:NIYA LANDON DATE OF SERVICE: 12/06/19 SEX: M MEDICAL RECORD: [id number] DATE OF : [birth year] LOCATION:[facility] AGE OF PATIENT: 74 ADMISSION DATE: 12/06/19 REFERRING PHYSICIAN: INTERPRETING PHYSICIAN: CARLOTTA COLEMAN MD ECHOCARDIOGRAM REPORT ECHO CHARGES 4 ECHO COMPLETE Date: 12/07/19 CLINICAL DIAGNOSIS: HF or EF ECHOCARDIOGRAPHIC MEASUREMENTS (adult normal given) AC root (d.<3.7cm) 2.8 cm LV Septum d (<1.2 cm> 0.9 cm Valve Excursion 1.4 cm LV Septum (systole) 1.0 cm Left Atria (s.<4.0cm> 4.5 cm LVPW d(<1.2cm) 0.7 cm RV (d.<2.3cm) 4.5 cm LVPW (sytole) 1.3 cm LV diastole(<5.6CM) 6.1 cm MV E-F(>70mm/sec) cm LV systole 4.7 cm LVOT Diameter 2.5 cm MV exc.(>10mm) cm Est.ejection fraction (50-75%) % DOPPLER: LVIT cm/sec A 54 cm/sec E 26 cm/sec LA cm/sec RVSP 30.6 mmHg LVOT 86 cm/sec AOP1/2T m/s Asc. Ao 124 cm/sec RVOT 45 cm/sec RA cm/sec PA 82 cm/sec AV Gradient Peak 6.2 mmHg AV Mean 4.1 mmHg AV Area 3.5 cm MV Gradient Peak mmHg MV Mean mmHg MV Area cm COMMENTS: Accounts Receivable Assistant: Jam PICKETTSASKIA JUAN Education Counselor: Robles Coleman TAPE# PACS Pericardial Effusion N DATE OF SERVICE: PROCEDURE: Transthoracic echocardiogram. FINDINGS: 1. Left ventricle was dilated. There is regional wall motion abnormalities. The overall ejection fraction is 20% to 25% with anterior hypokinesis to dyskinesis. 2. Left atrium is moderate to severely dilated. 3. The aortic valve has normal structure and function. ECHOCARDIOGRAM REPORT [id number] NIYA LANDON 4. The mitral valve has mild mitral regurgitation. 4. Tricuspid valve has mild tricuspid regurgitation. The right ventricular systolic pressure is 40-50 mmHg. 5. Right ventricle is moderate to severely dilated and mildly hypokinetic. 6. The right atrium is severely dilated. 7. Pulmonic valve is not well visualized. TRANSINT:[id number] Voice Confirmation ID: [id number] DOCUMENT ID: [id number] CARLOTTA COLEMAN MD CC: [id number] DICTATION DATE: 12/09/191608 FREIGHT MANAGER: 12/09/191925 ADM IN [facility] [address] [place] [address]
--- NOTE | 2019-12-06 12:20 | NUR ---
CODE [facility] CALLED PER DR DAILEY.
[2019-12-06 12:37] LABS: BASOPHILS 0.6 % (0-2); EOSINOPHILS 1.9 % (0-7); HEMATOCRIT 50.7 % (42.0-54.0); HEMOGLOBIN 15.9 g/dL (13.5-17.5); IMMATURE GRANULOCYTES 0.4 % (0-5); LYMPHOCYTES 16.6 % (15-50); MCH 28.5 pg (26.0-34.0); MCHC 31.4 g/dL (31.0-37.0); MEAN PLATELET VOLUME 9.4 fL (7.4-10.4); MONOCYTES 11.5 % (2-11); RBC 5.57 10x6/uL (4.20-6.10); RDW 17.9 % (11.5-14.5); WBC 5.2 10x3/uL (4.8-10.8)
[2019-12-06 12:41] LABS: PLATELET COUNT 125 10x3/uL (130-400)
--- NOTE | 2019-12-06 12:58 | NUR ---
PT MEETS [facility] SCREEN AT THIS TIME FOR HR AND BP. DR DAILEY NOTIFIED.
[2019-12-06 13:37] LABS: APTT 30.9 SECONDS (22.8-39.4); INR 1.23 (0.85-1.17); PROTIME 15.5 SECONDS (11.6-15.0)
[2019-12-06 13:47] LABS: D-DIMER-QUANTITATIVE 3.7 ug/mLFEU (0.20-0.54)
[2019-12-06 14:11] LABS: CALC OSMOLALITY 279 mosm/kg (275-300); CALCIUM 8.9 mg/dL (8.5-10.1); CARBON DIOXIDE 25.7 mmol/L (21.0-32.0); CHLORIDE - SERUM 104 mmol/L (98-107); CREATININE - SERUM 1.8 mg/dL (0.6-1.3); GLUCOSE 98 mg/dL (74-106); POTASSIUM - SERUM 5.3 mmol/L (3.5-5.1); SODIUM 134 mmol/L (136-145); UREA NITROGEN 47 mg/dL (7-18); eGFR NON AFRICAN AMERICAN 40 mL/min (90-120)
[2019-12-06 14:28] LABS: ALBUMIN 3.1 g/dL (3.4-5.0); ALKALINE PHOSPHATASE 111 U/L (30-120); ALT (SGPT) 17 U/L (10-68); BILIRUBIN - TOTAL 1.08 mg/dL (0.2-1.3); CKMB 1.9 U/L (0.0-3.6); CREATINE KINASE 68 UL (21-232); PRO BNP 18236 pg/mL (0-125); PROTEIN - SERUM 7.2 g/dL (6.4-8.2); TROPONIN-I 0.032 ng/mL (0.000-0.060)
--- NOTE | 2019-12-06 16:00 | NUR ---
REPORT GIVEN TO JOSE CAGLE IN ICU. STATES THAT THEY NEED TO CHANGE ROOMS FOR PT DUE TO NEEDING ROOM CLOSE TO NURSES STATION.
--- NOTE | 2019-12-06 17:00 | NUR ---
PER ICU, ROOM NOT READY AT THIS TIME.
--- NOTE | 2019-12-06 18:00 | NUR ---
PER ICU, ROOM READY AT THIS TIME.
--- NOTE | 2019-12-06 18:57 | NUR ---
PT IS NEGATIVE FOR COVID. DR PEREZ AT BEDSIDE.
--- NOTE | 2019-12-06 20:47 | NUR ---
CARDIOLOGY PAGED FOR CONSULT. AWAITING CALL BACK.
--- NOTE | 2019-12-06 22:11 | NUR ---
SPOKE WITH DR BOGGS, UPDATED ON STATUS, NEW ORDERS RECEIVED.
--- NOTE | 2019-12-06 23:02 | NUR ---
PT ATTEMPTING TO GET OUT OF BED, DISORIENTED X3. ATTEMPTED TO REORIENT.
[2019-12-07] VITALS (77 sets, daily range): BP systolic 74–140; BP diastolic 51–105; BMI 42.8
--- NOTE | 2019-12-07 01:00 | NUR ---
PT RESTING IN BED, DISORIENTED X3. ATTEMPTED TO REORIENT.
--- NOTE | 2019-12-07 04:16 | NUR ---
PIV INITIATED IN RT WRIST. PATENT, CDI.
[2019-12-07 05:02] LABS: BASOPHILS 0.7 % (0-2); EOSINOPHILS 0.1 % (0-7); HEMATOCRIT 50.1 % (42.0-54.0); HEMOGLOBIN 15.6 g/dL (13.5-17.5); IMMATURE GRANULOCYTES 0.3 % (0-5); MCH 28.2 pg (26.0-34.0); MCHC 31.1 g/dL (31.0-37.0); MCV 90.4 fL (80.0-100.0); MONOCYTES 10.2 % (2-11); NEUTROPHILS 80.7 % (40-80); RBC 5.54 10x6/uL (4.20-6.10); RDW 17.7 % (11.5-14.5)
[2019-12-07 05:19] LABS: PLATELET COUNT 177 10x3/uL (130-400); WBC 7.5 10x3/uL (4.8-10.8)
[2019-12-07 05:26] LABS: MAGNESIUM - SERUM 2.1 mg/dL (1.8-2.4); PHOSPHOROUS 4.3 mg/dL (2.5-4.9); TROPONIN-I 0.056 ng/mL (0.000-0.060)
[2019-12-07 05:44] LABS: ALKALINE PHOSPHATASE 106 U/L (30-120); ALT (SGPT) 17 U/L (10-68); BILIRUBIN - TOTAL 1.33 mg/dL (0.2-1.3); CALC OSMOLALITY 286 mosm/kg (275-300); CALCIUM 8.7 mg/dL (8.5-10.1); CHLORIDE - SERUM 106 mmol/L (98-107); CKMB 3.3 U/L (0.0-3.6); CREATINE KINASE 103 UL (21-232); CREATININE - SERUM 1.9 mg/dL (0.6-1.3); GLUCOSE 96 mg/dL (74-106); PROTEIN - SERUM 6.5 g/dL (6.4-8.2); SODIUM 137 mmol/L (136-145); TROPONIN-I 0.051 ng/mL (0.000-0.060); UREA NITROGEN 50 mg/dL (7-18); eGFR NON AFRICAN AMERICAN 37 mL/min (90-120)
[2019-12-07 06:04] LABS: CARBON DIOXIDE 19.2 mmol/L (21.0-32.0); POTASSIUM - SERUM 6.3 mmol/L (3.5-5.1); PRO BNP 30362 pg/mL (0-125)
--- NOTE | 2019-12-07 06:08 | NUR ---
DR MORA PAGED REGARDING CRITICAL LABS. AWAITING CALL BACK.
--- NOTE | 2019-12-07 06:33 | NUR ---
SPOKE WITH DR MORA, UPDATED ON PT STATUS, NEW ORDERS RECEIVED.
--- NOTE | 2019-12-07 08:14 | NUR ---
PT CONFUSED. VSS WITH LEVOPHED AT 7MCG/MIN. BP 111/93. TITRATED TO 5MCG/MIN. 02 7LNC. SPO2 98%. TITRATED O2 TO 5L.DR COLLINS HERE THIS AM ON ROUNDS AND SPOKE TO POA ON PHONE. DNR/DNI ORDERED BY DR COLLINS PER POA.
--- NOTE | 2019-12-07 10:34 | NUR ---
PT INC OF STOOL, BATH AND LINENS CHANGED.
--- NOTE | 2019-12-07 12:48 | NUR ---
LUNCH TRAY PROVIDED. PT TOOK ONE DRINK OF WATER AND BEGAN TO COUGH HARD. ST CONSULT ORDERED.
--- NOTE | 2019-12-07 17:38 | NUR ---
potassium called to dr hirsch. rec'd new order to tx elevated potassium.
--- NOTE | 2019-12-07 18:28 | NUR ---
PT INC OF STOOL. BATHED AND LINENS CHANGED.
--- NOTE | 2019-12-07 19:55 | NUR ---
RECEIVED CARE OF PT, ASSESSMENT PER FLOWSHEET. PT ORIENTED TO SELF AND PLACE ONLY, ON 5L NC, RHONCHI AUSC BILAT WITH DIM BASES, HR A-FIB ON CM, IV GTT'S PER FLOWSHEET. PT DENIES PAIN OR ANY NEEDS AT THIS TIME, BED LOW, CALL LIGHT IN REACH.
--- NOTE | 2019-12-07 21:10 | NUR ---
NO VISITORS PRESENT AT THIS TIME, ICE WATER PROVIDED PER REQUEST.
--- NOTE | 2019-12-07 23:15 | NUR ---
REASSESSMENT PER FLOWSHEET, NO ACUTE CHANGES NOTED AT THIS TIME, CONT POC.
[2019-12-08] VITALS (78 sets, daily range): BP systolic 81–128; BP diastolic 44–96; Ht 180.3 cm; Wt 131.8 kg
--- NOTE | 2019-12-08 01:20 | NUR ---
PT RESTING IN BED WITH EYES CLOSED, VSS, CONT POC.
[2019-12-08 04:28] LABS: BASOPHILS 0.7 % (0-2); EOSINOPHILS 0.7 % (0-7); HEMATOCRIT 49.4 % (42.0-54.0); HEMOGLOBIN 15.4 g/dL (13.5-17.5); IMMATURE GRANULOCYTES 0.2 % (0-5); LYMPHOCYTES 11.5 % (15-50); MCH 28.6 pg (26.0-34.0); MCHC 31.2 g/dL (31.0-37.0); MCV 91.7 fL (80.0-100.0); MEAN PLATELET VOLUME 10.2 fL (7.4-10.4); MONOCYTES 8.4 % (2-11); NEUTROPHILS 78.5 % (40-80); PLATELET COUNT 162 10x3/uL (130-400); RBC 5.39 10x6/uL (4.20-6.10); RDW 18.1 % (11.5-14.5)
[2019-12-08 04:30] LABS: WBC 5.5 10x3/uL (4.8-10.8)
[2019-12-08 04:40] LABS: ALBUMIN 2.6 g/dL (3.4-5.0); ANION GAP 11.6 mmol/L (8-16); BILIRUBIN - TOTAL 1.19 mg/dL (0.2-1.3); CALCIUM 8.3 mg/dL (8.5-10.1); CREATININE - SERUM 1.8 mg/dL (0.6-1.3); MAGNESIUM - SERUM 2.1 mg/dL (1.8-2.4); PHOSPHOROUS 3.8 mg/dL (2.5-4.9); POTASSIUM - SERUM 4.6 mmol/L (3.5-5.1); PROTEIN - SERUM 6.6 g/dL (6.4-8.2)
--- NOTE | 2019-12-08 05:35 | NUR ---
AM LABS REVIEWED, NOTHING TO TREAT PER ELECTROLYTE PROTOCOL.
--- NOTE | 2019-12-08 09:24 | NUR ---
BREAKFAST TRAY SERVED AND PT ATE 100% OF MEAL THIS AM.
--- NOTE | 2019-12-08 10:53 | NUR ---
DR COLEMAN HERE. REC'D NEW ORDERS.
--- NOTE | 2019-12-08 10:54 | NUR ---
WOUND TO LLE SOAKING THRU DSNG. WOUND CLEANSED W/WND SMALL WIND ENERGY INSTALLER AND REDRESSED.
--- NOTE | 2019-12-08 11:57 | NUR ---
DR PEREZ HERE ON ROUNDS.
--- NOTE | 2019-12-08 13:22 | NUR ---
PT REPOSITIONED AND AND DENTURES CLEANED. MOUTH CARE DONE.
--- NOTE | 2019-12-08 13:55 | NUR ---
pt asking to be repositioned. pt repositioned for comfort. sm amt stool. pt bathed and linens changed.
--- NOTE | 2019-12-08 16:50 | NUR ---
RT AC IV INFILTRATING. DCD AND RESITED 20G TO LWRIST X 1 STICK. DAUGHTER AT BS.
--- NOTE | 2019-12-08 17:07 | NUR ---
PT PULLED UP IN BED AND DINNER TRAY SERVED. PT IS FEEDING SELF AFTER MEAL TRAY SET UP.
[2019-12-09] VITALS (78 sets, daily range): BP systolic 57–124; BP diastolic 45–97
[2019-12-09 03:47] LABS: BASOPHILS 1.3 % (0-2); EOSINOPHILS 2.4 % (0-7); HEMATOCRIT 49.3 % (42.0-54.0); HEMOGLOBIN 15.3 g/dL (13.5-17.5); IMMATURE GRANULOCYTES 0.2 % (0-5); LYMPHOCYTES 10.2 % (15-50); MCH 28.2 pg (26.0-34.0); MEAN PLATELET VOLUME 9.6 fL (7.4-10.4); MONOCYTES 7.4 % (2-11); NEUTROPHILS 78.5 % (40-80); PLATELET COUNT 161 10x3/uL (130-400); RBC 5.42 10x6/uL (4.20-6.10); RDW 17.8 % (11.5-14.5); WBC 5.4 10x3/uL (4.8-10.8)
[2019-12-09 04:15] LABS: CALCIUM 8.2 mg/dL (8.5-10.1); CARBON DIOXIDE 24.7 mmol/L (21.0-32.0); CREATININE - SERUM 1.8 mg/dL (0.6-1.3); VANCOMYCIN - TROUGH 21.6 ug/mL (10.0-20.0)
[2019-12-09 04:16] LABS: ANION GAP 11.2 mmol/L (8-16); POTASSIUM - SERUM 3.9 mmol/L (3.5-5.1)
--- NOTE | 2019-12-09 05:30 | NUR ---
AM LABS REVIEWED, NOTHING TO TREAT PER ELECTROLYTE PROTOCOL.
--- NOTE | 2019-12-09 12:14 | NUR ---
DR PREEZ AT AND IS SPEAKING TO FAMILY. PTS SON STATES TO TAKE THE VENT OFF AND LET HER GO.
--- NOTE | 2019-12-09 12:23 | NUR ---
ASYSTOLE ON CM. FAMILY AT BS. DR PEREZ AT BS WITH FAMILY.
--- NOTE | 2019-12-09 17:19 | NUR ---
pt inc of stool x 2. cleaned x2 and linens changed x 2.
[2019-12-10] VITALS (19 sets, daily range): BP systolic 90–109; BP diastolic 57–96
--- NOTE | 2019-12-10 07:00 | NUR ---
REC'D REPORT AND RESUMED CARE, AWAKE AND CONFUSED, O2 VIA 4L HF NC, SAT 98%, VSS, DENIES PAIN, FOLLOWS COMMANDS, ORIENTED X3, ZAMARRIPA TO GRAVITY WITH YELLOW DRAINAGE TO BAG, LEFT LEG DRESSING CDI, ASSESSMENT COMPLETED PER FLOWSHEET, REPOSITIONED UP AND TO BACK WITH HEELS FLOATED, CALL LIGHT IN REACH, NO NEEDS AT THIS TIME
--- NOTE | 2019-12-10 07:50 | NUR ---
DR COLLINS HERE FOR EVAL, HE SPOKE WITH DAUGHTER VIA PHONE RE: POOR PROGNOSIS, DAUGHTER COMING IN TODAY TO TALK WITH FATHER RE: LONGTERM VS HOSPICE
--- NOTE | 2019-12-10 08:10 | NUR ---
BREAKFAST TRAY TO BEDSIDE, ASSIST WITH SET UP, INDEPENDENT WITH EATING
--- NOTE | 2019-12-10 09:00 | NUR ---
DAUGHTER AT BEDSIDE, SPOKE WITH PATIENT RE: CHOICES, MADE DECISION FOR INPATIENT HOSPICE, ORDER FOR HOSPICE EVAL AND ADMISSION IF APPROPRIATE PLACED AND CASE MANAGEMENT NOTIFIED
--- NOTE | 2019-12-10 09:30 | NUR ---
MORNING MEDS GIVEN PER JUL FLOWSHEET
--- NOTE | 2019-12-10 10:42 | NUR ---
Nutrition follow-up: Pt sleeping during RDN visit. Pt receiving an AHA mechanical soft diet; chopped meats, nectar thick liquids po intake 75-100% of meals Labs reviewed Wt: 290# RDN following.
--- NOTE | 2019-12-10 11:00 | NUR ---
RESTING WITH NO SIGNS OF DISTRESS, VSS, DENIES PAIN, CALL LIGHT IN REACH, NO ACUTE CHANGE FROM PREVIOUS ASSESSMENT
--- NOTE | 2019-12-10 11:45 | NUR ---
LUNCH TRAY TO BEDSIDE, ASSIST WITH SET UP AND INDEPENDENT WITH EATING
--- NOTE | 2019-12-10 15:00 | NUR ---
RESTING WITH NO SIGN OF DISTRESS, WATCHING TV, NO NEEDS AT THIS TIME, VSS CALL LIGHT IN REACH, NO ACUTE CHANGE FROM PREVIOUS
--- NOTE | 2019-12-10 17:15 | NUR ---
DINNER TRAY TO BEDSIDE, ASSIST WITH SET UP AND INDEPENDENT WITH EATING
--- NOTE | 2019-12-10 18:42 | MORECARE ---
CASE MANAGEMENT DISCHARGE SUMMARY PATIENT: NIYA LANDON RAY UNIT: [id number] ADM DATE: 12/06/19 AGE: 74 : 47 SEX: M ROOM/BED: D.2308 AUTHOR: DHAVAL BENNETT PHYSICIAN: REFERRING PHYSICIAN: YUE COLLINS MD DATE OF SERVICE: 12/10/19 Discharge Plan Patient Name: NIAY LANDON Facility: [facility]:[place] : 1945 Planned Disposition: Anticipated Discharge Date: Discharge Date: Expected LOS: Initial Reviewer: [email or web address] Initial Review Date: 12/06/2019 Generated: 12/10/19 7:42 pm External Providers External Provider: [facility] [place] in Next Contact Date: Service Request Date: Service Type: Resolution: Reviewer: Comments: Patient Name: NIYA LANDON Page 12265 at 1842 All edits/amendments must be made on the electronic document DICTATION DATE: 12/10/191841 INSTRUMENT REPAIRER: CONTRERAS 12/10/191841 RPT#: [id number] MI DATE: STATUS: ADM IN [facility] [address] [place] [address] END OF REPORT
--- NOTE | 2019-12-10 19:29 | MORECARE ---
CASE MANAGEMENT DISCHARGE SUMMARY PATIENT: NIYA LANDON UNIT: [id number] ADM DATE: 12/06/19 AGE: 74 : 47 SEX: M ROOM/BED: D.2308 AUTHOR: DHAVAL BENNETT PHYSICIAN: REFERRING PHYSICIAN: YUE COLLINS MD DATE OF SERVICE: 12/10/19 Discharge Plan Patient Name: NIYA LANDON [facility] : 1945 Planned Disposition: Anticipated Discharge Date: Discharge Date: Expected LOS: Initial Reviewer: [email or web address] Initial Review Date: 12/06/2019 Generated: 12/10/19 8:29 pm DCPIA - Discharge Planning Initial Assessment Updated by [email or web address]: Krupa Guevara on 12/10/19 7:28 pm * Is the patient Alert and Oriented? No * How many steps to enter\exit or inside your home? Last DP export: 12/10/19 5:42 p Patient Name: NIYA LANDON Page 38647 at 192 All edits/amendments must be made on the electronic document DICTATION DATE: 12/10/191928 ROOF PROMENADE TILE SETTER: CONTRERAS 12/10/191928 RPT#: [id number] DC DATE: STATUS: ADM IN [facility] [address] [place] [address] END OF REPORT
--- NOTE | 2019-12-10 19:36 | MORECARE ---
CASE MANAGEMENT DISCHARGE SUMMARY PATIENT: NIYA LANDON RAY UNIT: [id number] ADM DATE: 12/06/19 AGE: 74 : 47 SEX: M ROOM/BED: D.2308 AUTHOR: DHAVAL BENNETT PHYSICIAN: REFERRING PHYSICIAN: YUE COLLINS MD DATE OF SERVICE: 12/10/19 Discharge Plan Patient Name: NIYA LANDON Facility: [facility]:[place] : 1945 Planned Disposition: Anticipated Discharge Date: Discharge Date: Expected LOS: Initial Reviewer: [email or web address] Initial Review Date: 12/06/2019 Generated: 12/10/19 8:36 pm Comments DCP- Discharge Planning Updated by [email or web address]: Krupa Guevara on 12/10/19 6:[address] Patient Name: NIYA LANDON Admission Status: ER Accout number: [id number] Admission Date: 12-06-2019 : 1945 Admission Diagnosis:HYP HRT CHR KDNY DIS W HRT FAIL AND STG 1-4/UNSP CHR Attending: YUE COLLINS Current LOS: 4 Anticipated DC Date: Planned Disposition: Primary Insurance: [employer] MEDICARE PPO or HMO Discharge Planning Comments: CM NOTIFIED OF REQUEST FOR HOSPICE. CM CALLED AND SPOKE WITH PATIENT'S DAUGHTER CÉSAR ORELLANA [phone] AND SHE STATED THAT THEY WAS WANTING INPATIENT HOSPICE. CM EXPLAINED THE TWO DIFFERENT OPTIONS LOCALLY AND [facility] WAS DECIDED [facility]ON. CM CONTACTED [facility] AND FAXED OVER RECORDS. [facility] WILL HAVE NURSE OUT TO EVALUATE. CM WILL CONTINUE TO FOLLOW AND ASSIST NEEDED WITH DISCHARGE PLANNING / NEEDS. Outsole Scheduler: Krupa Guevara DCPIA - Discharge Planning Initial Assessment Updated by [id number]: Krupa Guevara on 12/10/19 7:28 pm * Is the patient Alert and Oriented? No * How many steps to enter\exit or inside your home? Last DP export: 12/10/19 6:29 p Patient Name: NIYA LANDON Page 61880 at 1936 All edits/amendments must be made on the electronic document DICTATION DATE: 12/10/191935 FASHION DESIGNER: CONTRERAS 12/10/191935 RPT#: [id number] DC DATE: STATUS: ADM IN [facility] [address] [place] [address] END OF REPORT
--- NOTE | 2019-12-10 20:51 | NUR ---
PT FAMILY CALLED TO GIVE UPDATE ON PT STATUS. PT IS POSITIONED FOR COMFORT WILL CONTINUE TO MONITOR.
--- NOTE | 2019-12-10 23:26 | NUR ---
HOSPICE NURSE HERE AT THIS TIME TO EVALUATE PT AND TO COLLECT PT INFORMATION. ZAMARRIPA BAG EMPTIED, 2000 ML OUT.
[2019-12-11 00:33] VITALS: BP 126/63
[2019-12-11 03:07] LABS: IMMUNOGLOBULIN E 244 IU/mL (6-495)
[2019-12-11 08:00] VITALS: BP 102/68
--- NOTE | 2019-12-11 12:22 | MORECARE ---
CASE MANAGEMENT DISCHARGE SUMMARY PATIENT: NIYA LANDON UNIT: [id number] ADM DATE: 12/06/19 AGE: 74 : 47 SEX: M ROOM/BED: D.2104 AUTHOR: SABRINA,DOC PHYSICIAN: REFERRING PHYSICIAN: YUE COLLINS MD DATE OF SERVICE: 12/11/19 Discharge Plan Patient Name: NIYA LANDON Facility: [facility]:[place] : 1945 Planned Disposition: Anticipated Discharge Date: Discharge Date: Expected LOS: Initial Reviewer: [email or web address] Initial Review Date: 12/06/2019 Generated: 12/11/19 1:21 pm Comments DCP- Discharge Planning Updated by [id number]: Annabella Reid on 12/11/19 11:[address] CM met with patient's daughter, explained that Hospice will re-evaluate the patient today. Cm discussed options for Home Hospice vs a nursing facility with Hospice or comfort care. Patient's daughter states she is unable to lift the patient and would require caregivers. Daughter: Diana Gaffney #[phone]. CM contacted Ata to inquire if patient meets GIP, a re-evaluation will be completed at this time. CM will continue to assist with DC plan. DCP- Discharge Planning Updated by [email or web address]: Krupa Guevara on 12/10/19 6:[address] Patient Name: NIYA LANDON Admission Status: ER Accout number: [id number] Admission Date: 12-06-2019 : 1945 Admission Diagnosis:HYP HRT CHR KDNY DIS W HRT FAIL AND STG 1-4/UNSP CHR Attending: YUE COLLINS Current LOS: 4 Anticipated DC Date: Planned Disposition: Primary Insurance: [employer] MEDICARE PPO or HMO Discharge Planning Comments: CM NOTIFIED OF REQUEST FOR HOSPICE. CM CALLED AND SPOKE WITH PATIENT'S DAUGHTER DIANA GAFFNEY [phone] AND SHE STATED THAT THEY WAS WANTING INPATIENT HOSPICE. CM EXPLAINED THE TWO DIFFERENT OPTIONS LOCALLY AND [facility] WAS DECIDED UPON. CM CONTACTED [facility] AND FAXED OVER RECORDS. [facility] WILL HAVE NURSE OUT TO EVALUATE. CM WILL CONTINUE TO FOLLOW AND ASSIST NEEDED WITH DISCHARGE PLANNING / NEEDS. Automobile Radiator Mechanic: Krupa Guevara DCPIA - Discharge Planning Initial Assessment Updated by [email or web address]: Krupa Guevara on 12/10/19 7:28 pm * Is the patient Alert and Oriented? No * How many steps to enter\exit or inside your home? Last DP export: 12/10/19 6:36 p Patient Name: NIYA LANDON Page 61649 at 1222 All edits/amendments must be made on the electronic document DICTATION DATE: 12/11/19 1222 ANALYSIS DIRECTOR: CONTRERAS 12/11/19 1222 RPT#: [id number] DC DATE: STATUS: ADM IN [facility] [address] [place] [address] END OF REPORT
[2019-12-11 20:50] VITALS: BP 150/130
--- NOTE | 2019-12-12 00:34 | NUR ---
REC'D. IN BED WALKING ROUNDS CHGE OF SHIFT.LONG LEG KERLIX DRSG INTACT LEFT LEG.REDNESS AND SWELLING TO FOOT. PEDAL PULSE PRESENT UP ON PILLOW.WIGGLES TOES ON COMMAND. WILL CONTINUE TO MONITO FOR ANY CHGES NEUROVASCULAR STATUS AND FOLLOW CURRENT PLAN OF CARE'
--- NOTE | 2019-12-12 03:15 | NUR ---
I have reviewed this patient and I concur with the Shift Assessment completed by the Licensed Practical Nurse today this shift.
[2019-12-12 08:59] VITALS: BP 109/58
--- NOTE | 2019-12-12 09:11 | NUR ---
CALL WAS PLACED TO DR. COLLINS ABOUT PT HAVING A TEMP OF 100.4 AX. AND UNABLE TO TAKE ANY OF HIS MEDICATION D/T BEING TO LETHARGIC. REC'D ORDER FOR APAP 650 MG SUPP. WILL CONTINUE TO OBSERVE FOR NEEDS. C/L IN REACH AT BEDSIDE.
--- NOTE | 2019-12-12 11:07 | NUR ---
I have reviewed this patient and I concur with the Shift Assessment completed by the Licensed Practical Nurse today this shift.
--- NOTE | 2019-12-12 11:15 | NUR ---
RECHECKED TEMP CURRENTLY 98.1 AX. DAUGHTER AT BEDSIDE.
--- NOTE | 2019-12-12 11:21 | NUR ---
REC'D IN WALKING ROUNDS IN BED WITH EYES CLOSED EASLY AROUSED WHEN NAME IS CALLED. RESP LABORED WITH O2 IN USE VIA NC. PT HAS NOTED GENERALIZED EDEMA TO UPPER AND LOWER EXTREMITES. NO C/O NOTED OR VOICED. ASSESSMENT COMPLETED. C/L IN REACH AT BEDSIDE.
--- NOTE | 2019-12-12 12:19 | NUR ---
CALLED AND SPOKE WITH DR. COLLINS ABOUT CHANGING PT PAIN MEDICATION FROM MORPHINE D/T LOW BP OF 90/50. NO NEW ORDERS NOTED AND TO CONTINUE WITH CURRENT ORDER. WILL INFORMED DAUGHTER. C/L IN REACH AT BEDSIDE.
--- NOTE | 2019-12-12 12:48 | MORECARE ---
CASE MANAGEMENT DISCHARGE SUMMARY PATIENT: NIYA LANDON UNIT: [id number] ADM DATE: 12/06/19 AGE: 74 : 47 SEX: M ROOM/BED: D.2104 AUTHOR: DHAVAL BENNETT PHYSICIAN: REFERRING PHYSICIAN: YUE COLLINS MD DATE OF SERVICE: 12/12/19 Discharge Plan Patient Name: NIYA LANDON Facility: [facility]:[place] : 1945 Planned Disposition: Anticipated Discharge Date: Discharge Date: Expected LOS: Initial Reviewer: [email or web address] Initial Review Date: 12/06/2019 Generated: 12/12/19 1:47 pm Comments DCP- Discharge Planning Updated by [email or web address]: Annabella Reid on 12/12/19 11:[address] CM was contacted by Ata Spears regarding Dc today. Made Ata aware of the patient's decline and he will be in touch with the hospice nurse to see if patient now meets GIP. CM will fax information to [facility] for prior-authorization. 0930: Patient's daughter request that her father go into [facility] Nursing[facility]hab for Hospice care vs home with Hospice. This will require a prior authorization with the insurance company. The patient has had a decline as of today, less responsive and increase in O2 requirements from 4L to 7L NC. Basically non-responsive today, as yesterday he was trying to make conversation, although unintelligible. Patient's daughter states she has family coming over to help clean the patient's house today. Daughter states that she is unable to care for the patient at home. Patient has had a caregiver in the past, but the daughter fired them. DCP- Discharge Planning Updated by [email or web address]: Annabella Reid on 12/11/19 11:[address] CM met with patient's daughter, explained that Hospice will re-evaluate the patient today. Cm discussed options for Home Hospice vs a nursing facility with Hospice or comfort care. Patient's daughter states she is unable to lift the patient and would require caregivers. Daughter: Diana Gaffney #[phone]. CM contacted Ata to inquire if patient meets GIP, a re-evaluation will be completed at this time. CM will continue to assist with DC plan. 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 CM CALLED AND SPOKE WITH PATIENT'S DAUGHTER DIANA GAFFNEY [phone] AND SHE STATED THAT THEY WAS WANTING INPATIENT HOSPICE. CM EXPLAINED THE TWO DIFFERENT OPTIONS LOCALLY AND [facility] WAS DECIDED UP[facility]. CM CONTACTED [facility] AND FAXED OVER RECORDS. [facility] WILL HAVE NURSE OUT TO EVALUATE. CM WILL CONTINUE TO FOLLOW AND ASSIST NEEDED WITH DISCHARGE PLANNING / NEEDS. Service Tester: Krupa Guevara DCPIA - Discharge Planning Initial Assessment Updated by [email or web address]: Krupa Guevara on 12/10/19 7:28 pm * Is the patient Alert and Oriented? No * How many steps to enter\exit or inside your home? Last DP export: 12/11/19 11:22 a Patient Name: NIYA LANDON Page 95620 at 1248 All edits/amendments must be made on the electronic document DICTATION DATE: 12/12/19 1247 PATIENT OFFICE REP: CONTRERAS 12/12/19 1247 RPT#: [id number] DC DATE: STATUS: ADM IN [facility] [address] [place] [address] END OF REPORT
--- NOTE | 2019-12-12 16:02 | NUR ---
MEDICATED WITH MORPHINE D/T AIR HUNGER. C/L IN REACH AT BEDSIDE.
--- NOTE | 2019-12-12 17:55 | NUR ---
PT DC FROM INPATIENT AND CHANGED OVER TO HOSPICE CARE.
--- NOTE | 2019-12-13 08:52 | MORECARE ---
CASE MANAGEMENT DISCHARGE SUMMARY PATIENT: NIYA LANDON UNIT: [id number] ADM DATE: 12/06/19 AGE: 74 : 47 SEX: M ROOM/BED: D.2104 AUTHOR: SABRINA,DOC PHYSICIAN: REFERRING PHYSICIAN: YUE COLLINS MD DATE OF SERVICE: 12/13/19 Discharge Plan Patient Name: NYIA LANDON Facility: [facility]:[place] : 1945 Planned Disposition: Hospice Medical Facility Anticipated Discharge Date: 12/12/19 Discharge Date: 12/12/2019 Expected LOS: 6 Initial Reviewer: [email or web address] Initial Review Date: 12/06/2019 Generated: 12/13/19 9:52 am Comments DCP- Discharge Planning Updated by [id number]: Annabella Reid on 12/12/19 11:[address] CM was contacted by Ata Spears regarding Dc today. Made Ata aware of the patient's decline and he will be in touch with the hospice nurse to see if patient now meets GIP. CM will fax information to [facility] for prior-authorization. 0930: Patient's daughter request that her father go into [facility] Nursing/Rehab for Hospice care vs home with Hospice. This will require a prior authorization with the insurance company. The patient has had a decline as of today, less responsive and increase in O2 requirements from 4L to 7L NC. Basically non-responsive today, as yesterday he was trying to make conversation, although unintelligible. Patient's daughter states she has family coming over to help clean the patient's house today. Daughter states that she is unable to care for the patient at home. Patient has had a caregiver in the past, but the daughter fired them. DCP- Discharge Planning Updated by [email or web address]: Annabella Reid on 12/11/19 11:[address] CM met with patient's daughter, explained that Hospice will re-evaluate the patient today. Cm discussed options for Home Hospice vs a nursing facility with Hospice or comfort care. Patient's daughter states she is unable to lift the patient and would require caregivers. Daughter: Diana Gaffney #[phone]. DANIKA contacted Ata to inquire if patient meets GIP, a re-evaluation will be completed at this time. CM will continue to assist with DC plan. DCP- Discharge Planning Updated by [id number]: Krupa Guevara on 12/10/19 6:[address] Patient Name: NIYA LANDON Admission Status: ER Accout number: [id number] Admission Date: 12-06-2019 : 1945 Admission Diagnosis:HYP HRT CHR KDNY DIS W HRT FAIL AND STG 1-4/UNSP CHR Attending: YUE COLLINS Current LOS: 4 Anticipated DC Date: Planned Disposition: Primary Insurance: [employer] MEDICARE PPO or HMO Discharge Planning Comments: CM NOTIFIED OF REQUEST FOR HOSPICE. CM CALLED AND SPOKE WITH PATIENT'S DAUGHTER DIANA GAFFNEY [phone] AND SHE STATED THAT THEY WAS WANTING INPATIENT HOSPICE. CM EXPLAINED THE TWO DIFFERENT OPTIONS LOCALLY AND [facility] WAS DECIDED UP[facility]. CM CONTACTED [facility] AND FAXED OVER RECORDS. [facility] WILL HAVE NURSE OUT TO EVALUATE. CM WILL CONTINUE TO FOLLOW AND ASSIST NEEDED WITH DISCHARGE PLANNING / NEEDS. Assistance Specialist: Krupa Guevara DCPIA - Discharge Planning Initial Assessment Updated by [email or web address]: Krupa Guevara on 12/10/19 7:28 pm * Is the patient Alert and Oriented? No * How many steps to enter\exit or inside your home? Last DP export: 12/12/19 11:48 a Patient Name: NIYA LANDON Page 56731 at 0852 All edits/amendments must be made on the electronic document DICTATION DATE: 12/13/1952 BANQUET COOK: CONTRERAS 12/13/19 0852 RPT#: [id number] DC DATE:12/12/19 STATUS: DIS IN [facility] [address] [place] [address] END OF REPORT
== END 2019-12-12 17:56 | disposition hospice, inpatient (51) | DRG 871 ==
LOC: D.ER 11:32 → D.ICU 15:06 → D.M2 12-10 22:26
PROVIDERS: Family Medicine; Internal Medicine Pulmonary Disease; ADMIT Family Medicine; ATTEND Family Medicine
DX: A41.9 Sepsis, unspecified organism (principal); I50.23 Acute on chronic systolic (congestive) heart failure; J96.21 Acute and chronic respiratory failure with hypoxia; J18.9 Pneumonia, unspecified organism; G93.41 Metabolic encephalopathy; R65.21 Severe sepsis with septic shock; R57.0 Cardiogenic shock; I13.0 Hypertensive heart and chronic kidney disease with heart failure and stage 1 through stage 4 chronic kidney disease, or unspecified chronic kidney disease; L03.116 Cellulitis of left lower limb; L03.115 Cellulitis of right lower limb; Z66 Do not resuscitate; J43.9 Emphysema, unspecified; E11.9 Type 2 diabetes mellitus without complications; I10 Essential (primary) hypertension; I11.0 Hypertensive heart disease with heart failure; F17.200 Nicotine dependence, unspecified, uncomplicated; G47.33 Obstructive sleep apnea (adult) (pediatric); J30.9 Allergic rhinitis, unspecified; I48.91 Unspecified atrial fibrillation; E87.5 Hyperkalemia; E11.22 Type 2 diabetes mellitus with diabetic chronic kidney disease; N18.9 Chronic kidney disease, unspecified; E11.21 Type 2 diabetes mellitus with diabetic nephropathy; E11.40 Type 2 diabetes mellitus with diabetic neuropathy, unspecified; N40.0 Benign prostatic hyperplasia without lower urinary tract symptoms; F32.9 Major depressive disorder, single episode, unspecified; M19.90 Unspecified osteoarthritis, unspecified site; I71.4 Abdominal aortic aneurysm, without rupture; E78.5 Hyperlipidemia, unspecified

== ENCOUNTER 2019-12-12 18:42 | Inpatient (IN) | payer OTHER ==
[2019-12-08 11:01] VITALS: BMI 42.8
--- NOTE | 2019-12-12 19:30 | NUR ---
PT IN BED, EYES CLOSED, RESP EVEN AND UNLABORED, NO DISTRESS NOTED, CL IN REACH, SR UP X 2. FAMILY AT BEDSIDE.
--- NOTE | 2019-12-13 06:16 | NUR ---
PT , HOME TO BIBLICAL STUDIES PROFESSOR AT THIS TIME.
--- NOTE | 2019-12-13 08:53 | MORECARE ---
CASE MANAGEMENT DISCHARGE SUMMARY PATIENT: NIYA LANDON RAY UNIT: [id number] ADM DATE: 12/12/19 AGE: 74 : 47 SEX: M ROOM/BED: D.2104 AUTHOR: DHAVAL BENNETT PHYSICIAN: REFERRING PHYSICIAN: FELIPE ROSE MD DATE OF SERVICE: 12/13/19 Discharge Plan Patient Name: NIYA LANDON Facility: [facility]:[place] : 1945 Planned Disposition: Anticipated Discharge Date: 12/13/19 Discharge Date: 12/13/2019 Expected LOS: 1 Initial Reviewer: [email or web address] Initial Review Date: 12/12/2019 Generated: 12/13/19 9:53 am Patient Name: NIYA LANDON Page 40453 at 0853 All edits/amendments must be made on the electronic document DICTATION DATE: 12/13/19 0853 GANDY DANCER: CONTRERAS 12/13/19 0853 RPT#: [id number] DC DATE:12/13/19 STATUS: DIS IN [facility] [address] [place] [address] END OF REPORT
== END 2019-12-13 06:10 | DRG 951 ==
LOC: D.M2 18:42
PROVIDERS: ADMIT Legal Medicine; ATTEND Legal Medicine
DX: Z51.5 Encounter for palliative care (principal)